=== PATIENT | female | born 1995 | race African-American/Black ===

== ENCOUNTER 2016-08-26 21:31 | Emergency (ER) | payer SELFPAY ==
[~2016-08-26 21:31] MED LIST: AMOX875T PO; CEPH500C3 PO
[2016-08-26 21:33] VITALS: BP 138/74; PULSE 91; RESP 18; TEMP 99.5; O2SAT 99
--- NOTE | 2016-08-26 21:52 | PD ---
HPI Chief Complaint: Cold / Flu Symptoms Time Seen by Provider: 21:51 Travel History International Travel<30 days: No Contact w/Intl Traveler<30days: No Traveled to known affect area: No History of Present Illness HPI 21-year-old black female presents to emergency Department with complaints of myalgias, arthralgias, sore throat, congestion, slight cough. She has taken [id number] cough medicine without relief. She has not taken any Tylenol or ibuprofen today. She denies any nausea vomiting. No abdominal pain or diarrhea. No dysuria or frequency. Her significant other states that she just got into town yesterday from [place]. No travel outside the country. PFSH Past Medical History Medical History: Denies Significant Hx Tetanus Vaccination: < 5 Years ?: Not LMP: last week Past Surgical History Surgical History: No Previous Surgery Social History Alcohol Use: No Tobacco Use: No Allergies-Medications (Allergen,Severity, Reaction): Coded Allergies: No Known Allergies (Unverified , 08/26/16) Reported Meds & Prescriptions Reported Meds & Active Scripts Active No Active Prescriptions or Reported Medications Review of Systems Except as stated in HPI: all other systems reviewed are Neg Physical Exam Narrative GENERAL: Well-developed, well-nourished in no acute distress. Nontoxic appearing. HEAD: Normocephalic, atraumatic. EYES: Pupils equal round and reactive. Extraocular motions intact. No scleral icterus. No injection or drainage. ENT: TMs clear without erythema. The external auditory canals clear. Nose: clear . Posterior pharynx is pink and moist. No tonsillar edema or exudate. Uvula midline. Airway patent. NECK: Trachea midline.Supple, nontender, moves head freely. No central bony tenderness or spasm. CARDIOVASCULAR: Regular rate and rhythm without murmurs, gallops, or rubs. RESPIRATORY: Clear to auscultation. Breath sounds equal bilaterally. No wheezes , rales, or rhonchi. GASTROINTESTINAL: Abdomen soft, non-tender, nondistended. No hepato-splenomegaly , or palpable masses. No guarding. EXTREMITIES: No clubbing, cyanosis, or edema. No joint tenderness, effusion, or edema noted. BACK: Nontender without deformity or crepitance. No flank tenderness. Data Data Last Documented VS Vital Signs Date Time Temp Pulse Resp B/P Pulse Ox O2 Delivery O2 Flow Rate FiO2 08/26/16 21:33 99.5 91 18 138/74 99 Room Air Orders Group A Rapid Strep Screen (08/26/16 21:50) Ibuprofen (Motrin) (08/26/16 22:00) Strep Culture (Group A) (08/26/16 22:00) MDM Medical Decision Making Medical Screen Exam Complete: Yes Emergency Medical Condition: Yes Medical Record Reviewed: Yes Interpretation(s) Rapid strep: Negative Differential Diagnosis MDM: High Differential diagnoses: Pneumonia, bronchitis, URI, asthma, RAD, strep throat, viral syndrome Narrative Course Patient is given Motrin 600 mg by mouth and a rapid strep that is been ordered. Patient's rapid strep is negative. This is acute viral syndrome Diagnosis Primary Impression: Acute viral syndrome Patient Instructions: General Instructions Departure Forms: School Release, Please excuse from school until (free text option): No work or school 3 days. Tests/Procedures, Work Release Additional Instructions: Rest. Increase fluids. Tylenol and Advil for fever or pain. Recheck with her primary care doctor in the next 3-5 days. Return to the ER if any problems develop. Med/Other Pt SpecificInfo: No Meds Exist/No RX given Scripts No Active Prescriptions or Reported Meds Disposition: 01 DISCHARGE HOME Condition: Stable Tye Izaguirre August 26, 2016 21:52
[2016-08-26] MEDS ORDERED: IBUPROFEN 600 MG TAB PO ONE (22:00)
== END 2016-08-26 23:15 | disposition home or self-care (01) ==
LOC: NEPK 21:31
DX: B34.9 Viral infection, unspecified (principal)
CPT/HCPCS: 87081; 87880; 99283

== ENCOUNTER 2017-04-25 08:08 | Emergency (ER) | payer OTHER ==
[~2017-04-25 08:08] MED LIST changes: -AMOX875T PO; -CEPH500C3 PO; +PREN1PAK2 PO
--- NOTE | 2017-04-25 09:08 | PD ---
HPI Chief Complaint Vaginal bleeding Date Seen: Apr 25, 2017 Time Seen: 09:03 Travel History International Travel<30 Days: No Contact w/Intl Traveler<30Days: No Known Affected Area: No History of Present Illness HPI 21-year-old at 16 weeks 3 days comes in complaining of vaginal bleeding. Patient was diagnosed with twin gestation and has had previous episodes of bleeding 3. While she was in [place] yesterday patient passed a blood clot the size a [place], no cramping or abdominal pain was noted. Patient continued to have some brown discharge through the day that progressed to today she came in today because she she arrived back in the area. Patient seeks [facility] with her last ultrasound 2 weeks ago showed no abnormalities. Weeks Gestation: 16 Para: 0 : 1 History Past Medical History Medical History: Denies Significant Hx Past Surgical History Surgical History: No Previous Surgery Family History Family History: Negative Social History Alcohol Use: No Tobacco Use: No Substance Abuse: No Allergies-Medications (Allergen,Severity, Reaction): Coded Allergies: No Known Allergies (Unverified Adverse Reaction, Unknown, 04/15/17) Home Meds Active Scripts W/O Vit A W/ Fe Carbo Pack (Citranatal Dha Pack) 27-1 & 250 Mg Pack, 1 EA PO DAILY for Nutritional Supplement, #30 BLISTER 11 Refills 30 day supply. Prov:Marcela Golden 04/02/17 Review of Systems Except as stated in HPI: all other systems reviewed are Neg Physical Exam Narrative GENERAL: Well-nourished, well-developed patient. SKIN: Warm and dry. HEAD: Normocephalic and atraumatic. EYES: No scleral icterus. No injection or drainage. ENT: No nasal drainage noted. Mucous membranes pink. Airway patent. NECK: Supple, trachea midline. No JVD. CARDIOVASCULAR: Regular rate and rhythm without murmurs, gallops, or rubs. RESPIRATORY: Breath sounds equal bilaterally. No accessory muscle use. ABDOMEN/GI: Abdomen soft, non-tender, bowel sounds present, no rebound, no guarding Gravid to [16 normal-] weeks size Fundal Height: [-] GENITOURINARY: Speculum examination was performed that showed some brown discharge intravaginally, no active bleeding, cervix is closed. External Genitalia: intact and normal in appearance BUS glands: [-] Cervix: [-] Dilatation: [-] Effacement: [-] Station: [-] Presentation: [-] Membranes: [intact or ruptured] Uterine Contractions: [-] Bedside ultrasound was performed that confirms twin gestation approximate 16 weeks. Some blood is noted above the internal cervical os, cervix appears long no funneling is noted no dilation is noted. Both fetuses have a heart rate in the 140s. EXTREMITIES: No cyanosis or edema. BACK: Nontender without obvious deformity. No CVA tenderness. NEUROLOGICAL: Awake and alert. Motor and sensory grossly within normal limits. Five out of 5 muscle strength in all muscle groups. Normal speech. Data Data Vital Signs Reviewed: Yes MDM Medical Record Reviewed: Yes Plan 21-year-old female at 16 weeks 3 days with twin gestation, first and second trimester bleeding. Patient continues to be at risk for continued bleeding as well as labor given her history of first and second trimester bleeding. She has a ultrasound again in 2 weeks with [facility] and I put her at limited activity and pelvic rest. No signs of cervical insufficiency is noted although I cannot rule out a low- lying posterior placenta Diagnosis Diagnosis: Primary Impression: Vaginal bleeding during , antepartum Additional Impressions: 16 weeks gestation of Twin gestation in second trimester Disposition: 01 DISCHARGE HOME Dannielle Macias MD Apr 25, 2017 09:07
== END 2017-04-25 09:28 | disposition home or self-care (01) ==
LOC: HOBED 08:08
DX: O20.9 Hemorrhage in early pregnancy, unspecified (principal); O30.002 Twin pregnancy, unspecified number of placenta and unspecified number of amniotic sacs, second trimester; Z3A.16 16 weeks gestation of pregnancy
CPT/HCPCS: 99283

== ENCOUNTER → 2017-05-05 | Outpatient (CLI) | payer OTHER | LOC: HPND 09:08 | PROVIDERS: ATTEND Obstetrics & Gynecology | DX: O30.042 Twin pregnancy, dichorionic/diamniotic, second trimester (principal) | CPT/HCPCS: 76810; 76811; 76812; 76817 ==

== ENCOUNTER → 2017-05-12 | Outpatient (CLI) | payer OTHER ==
[~2017-05-12] MED LIST changes: +NITR100C4 PO
== END ==
LOC: HPND 09:21
PROVIDERS: ATTEND Obstetrics & Gynecology
DX: O26.872 Cervical shortening, second trimester (principal); O30.042 Twin pregnancy, dichorionic/diamniotic, second trimester
CPT/HCPCS: 76815; 76817

== ENCOUNTER 2017-05-18 11:17 | Emergency (ER) | payer OTHER ==
[~2017-05-18 11:17] MED LIST changes: -NITR100C4 PO
--- NOTE | 2017-05-18 12:01 | PD ---
HPI Chief Complaint Abdominal pain Travel History International Travel<30 Days: No Contact w/Intl Traveler<30Days: No Known Affected Area: No History of Present Illness HPI 21-year-old , IUP at 19.5 care couple could by twin IUP, shortened cervix, anemia, first trimester bleeding Patient presents reporting a 3 day history of lower abdominal pain it's worse when she uses the bathroom, but she denies any dysuria or actual pain in her bladder. Of note she's been told to be on bedrest for shortened cervix or reports that she's been going back and forth in doing things and campus as well as as other activities. She reports that 2 weeks ago her cervical length was 2.5 cm in 1 week ago it was 2.9 cm. She denies any painful contractions or cramping. She denies any leaking of fluid or vaginal bleeding. She reports normal movement Of note review of the records indicated that on 05.05.17 her cervical length was 2.5-2.7 cm. On 05/12/17 her cervical length was 3.2 and 2.9 cm with fundal pressure, no funneling was noted. Weeks Gestation: 19 Para: 0 : 1 Miscarriage: 0 : 0 History Past Medical History Narrative Medical Anemia Obstetric History Obstetric History Past Surgical History Surgical History: No Previous Surgery Family History Narrative Family History DM Social History Alcohol Use: No Tobacco Use: No Substance Abuse: No Allergies-Medications (Allergen,Severity, Reaction): Coded Allergies: No Known Allergies (Unverified Adverse Reaction, Unknown, 04/15/17) Home Meds Active Scripts Nitrofurantoin Monohydrate Macrocrystals (Nitrofurantoin Monohydrate Macrocrystals) 100 Mg Cap, 100 MG PO BID for Infection, #14 CAP 0 Refills . Prov:Norm Rodriguez MD R2 05/18/17 W/O Vit A W/ Fe Carbo Pack (Citranatal Dha Pack) 27-1 & 250 Mg Pack, 1 EA PO DAILY for Nutritional Supplement, #30 BLISTER 11 Refills 30 day supply. Prov:Marcela Golden 04/02/17 Review of Systems Except as stated in HPI: all other systems reviewed are Neg General / Constitutional: No: Fever, Weight Loss, Chills, Other Gastrointestinal: No: Nausea, Vomiting, Diarrhea, Abdominal Pain, Hematemesis, Hematochezia, Constipation, Changes in Bowel Habits, Indigestion, Loss of Appetite, Other Genitourinary: No: Urgency, Frequency, Dysuria, Nocturia, Hematuria, Decreased Urinary Output, Oliguria, Hesitancy, Dribbling, Incontinence, Pelvic Pain, Dyspareunia, Discharge, Vaginal Bleeding, Other Physical Exam Narrative GENERAL: Well-nourished, well-developed patient. SKIN: Warm and dry. HEAD: Normocephalic and atraumatic. EYES: No scleral icterus. No injection or drainage. ENT: No nasal drainage noted. Mucous membranes pink. Airway patent. NECK: Supple, trachea midline. No JVD. CARDIOVASCULAR: Regular rate and rhythm without murmurs, gallops, or rubs. RESPIRATORY: Breath sounds equal bilaterally. No accessory muscle use. BREASTS:Deferred ABDOMEN/GI: Abdomen soft, non-tender, bowel sounds present, no rebound, no guarding Gravid GENITOURINARY: External Genitalia: intact and normal in appearance. Grossly normal BUS, no cervical or vaginal masses, grossly normal rugae. SSE reveals closed cervix and physiological discharge. SVE closed/thick/high. Uterine Contractions: occasional irritability FHT's: 150s/160s EXTREMITIES: No cyanosis or edema. BACK: Nontender without obvious deformity. No CVA tenderness. NEUROLOGICAL: Awake and alert. Motor and sensory grossly within normal limits. Normal speech. Musculoskeletal: grossly normal range of motion, gait, muscle strength Psychiatric: grossly normal memory, affect MDM Plan Assessment/plan: 1. IUP at 19.5 2. Di/di twin gestation 3. History of anemia 4. Shortened cervix: The patient had a repeat transvaginal cervical length today that was 4.1 cm. An addition the cervix appeared visually closed and is closed by SVE. Patient to continue modified bed rest until she is cleared by her primary OB. Strict AB/ labor precautions. 5. UTI: Patient appears to have a urinary tract infection, she was given Rocephin 1 g IV prior to discharge. Macrobid 100 mg by mouth twice a day 7 days was transmitted to her pharmacy. In addition she was given a written prescription in case there was an error and transmission. Patient was given strict pyelonephritis precautions. There is no evidence of pyelonephritis at this time. F/U on culture results with primary Ob in 2 days. 6. heart tones appropriate for gestational age 7. F/U with primary Ob in 2 days or sooner if needed Diagnosis Diagnosis: Primary Impression: 19 weeks gestation of Additional Impressions: Twin gestation in second trimester UTI (urinary tract infection) Disposition: 01 DISCHARGE HOME Scripts Nitrofurantoin Monohydrate Macrocrystals (Nitrofurantoin Monohydrate Macrocrystals) 100 Mg Cap 100 MG PO BID for Infection, #14 CAP 0 Refills . Prov: Norm Rodriguez MD R2 05/18/17 Additional Instructions: F/U with primary OB in 2d or sooner if needed. Rx macrobid. F/U with primary Ob in 2d for results of urine culture. Continue modified bedrest until cleared by primary Ob. Marcela Cohen MD May 18, 2017 12:01
[2017-05-18] MEDS ORDERED: LACTATED RINGER'S 1000 ML INJ 1,000 ML IV SCH (12:26)
[2017-05-18 14:20] LABS: BACTERIA, URINE FEW /hpf; BILIRUBIN, URINE NEG (NEG); BLOOD, URINE NEG (NEG); GLUCOSE,URINE NEG (NEG); KETONE, URINE NEG (NEG); MUCUS URINE FEW /lpf (OCC); NITRITE,URINE NEG (NEG); SQUAMOUS EPITHELIAL CELL URINE 6 /hpf (0-5); URINE COLOR YELLOW (YELLW/STRAW); URINE LEUKOCYTE ESTERASE LARGE (NEG)
[2017-05-18] MEDS ORDERED: NITR100C4 PO (14:34)
[2017-05-18] MEDS ORDERED: cefTRIAXone INJ 1,000 MG in SODIUM CHLORIDE 0.9% INJ 100 ML IV ONE (15:00)
== END 2017-05-18 16:10 | disposition home or self-care (01) ==
LOC: HOBED 11:17
DX: O23.42 Unspecified infection of urinary tract in pregnancy, second trimester (principal); O30.002 Twin pregnancy, unspecified number of placenta and unspecified number of amniotic sacs, second trimester; Z3A.19 19 weeks gestation of pregnancy
CPT/HCPCS: 76815; 76817; 80307; 81001; 87086; 96361; 96374; 99284; G0481; J0696; J7120

== ENCOUNTER → 2017-06-02 | Outpatient (CLI) | payer OTHER ==
[~2017-06-02] MED LIST changes: +NITR100C4 PO
== END ==
LOC: HPND 09:22
PROVIDERS: ATTEND Obstetrics & Gynecology
DX: O30.042 Twin pregnancy, dichorionic/diamniotic, second trimester (principal); O26.872 Cervical shortening, second trimester
CPT/HCPCS: 76816; 76817

== ENCOUNTER 2017-06-17 07:54 | Observation (INO) | payer OTHER ==
[2017-06-17] VITALS (98 sets, daily range): BP systolic 107–135; BP diastolic 53–80; PULSE 73–101; RESP 16–18; TEMP 97.6–98.1
[~2017-06-17] VITALS: Ht 160 cm; Wt 61.0 kg
[2017-06-17] MEDS ORDERED: SODIUM CHLORIDE 0.9% FLUSH 10 ML FLUSH IV FLUSH PRN (10:30)
--- NOTE | 2017-06-17 10:44 | HHI.HP ---
HPI Chief Complaint shortened cervix Date Seen: Jun 17, 2017 Time Seen: 10:00 (Migdalia Grove MD R1) Travel History International Travel<30 Days: No Contact w/Intl Traveler<30Days: No Known Affected Area: No (Migdalia Grove MD R1) History of Present Illness HPI Ms. Ignacio is a 22-year-old -[place] female at 24/0 weeks twin gestation presenting to the OB floor after being sent over from [facility] for shortened cervical length. Her cervical length today was 17 mm from 35 mm 2 weeks ago. Patient states that she has contractions, but was unsure of if they were true contractions due to them being uncomfortable and not painful. She states that she is felt these over the past 2-3 days. She states that she feels a lot of contractions over an hour, but has not timed them. No vaginal bleeding, no LOF, she has felt the babies move. No dysuria, no CP, no shortness of breath, no bilateral calf pain Weeks Gestation: 24 Para: 0 : 1 (Migdalia Grove MD R1) History Past Medical History Medical History: Denies Significant Hx (Migdalia Grove MD R1) Past Surgical History Surgical History: No Previous Surgery (Migdalia Grove MD R1) Family History Narrative Family History Mother-asthma Father- DM (Migdalia Grove MD R1) Social History Narrative Social History lives with giselle' Goes to [employer] for degree in Criminal Justice Denies alcohol, tobacco, or illicit drug use Alcohol Use: No Tobacco Use: No Substance Abuse: No (Migdalia Grove MD R1) Allergies-Medications (Allergen,Severity, Reaction): Coded Allergies: No Known Allergies (Unverified Adverse Reaction, Unknown, 04/15/17) Home Meds Active Scripts Nitrofurantoin Monohydrate Macrocrystals (Nitrofurantoin Monohydrate Macrocrystals) 100 Mg Cap, 100 MG PO BID for Infection, #14 CAP 0 Refills . Prov:Norm Rodriguez MD R2 05/18/17 W/O Vit A W/ Fe Carbo Pack (Citranatal Dha Pack) 27-1 & 250 Mg Pack, 1 EA PO DAILY for Nutritional Supplement, #30 BLISTER 11 Refills 30 day supply. Prov:Marcela Golden 04/02/17 Review of Systems General / Constitutional: No: Fever, Chills Eyes: No: Blurred Vision HENT: No: Headaches Cardiovascular: No: Chest Pain or Discomfort Respiratory: No: Short of Breath Gastrointestinal: No: Nausea, Vomiting Genitourinary: No: Dysuria Musculoskeletal: No: Weakness Skin: No Rash (Migdalia Grove MD R1) Physical Exam Narrative GENERAL: Well-nourished, well-developed patient. SKIN: Warm and dry. HEAD: Normocephalic and atraumatic. EYES: No scleral icterus. No injection or drainage. ENT: No nasal drainage noted. Mucous membranes pink. Airway patent. NECK: Supple, trachea midline. No JVD. CARDIOVASCULAR: Regular rate and rhythm without murmurs, gallops, or rubs. RESPIRATORY: Breath sounds equal bilaterally. No accessory muscle use. BREASTS: Bilateral exam showed no masses , no retractions, no nipple discharge. ABDOMEN/GI: Abdomen soft, non-tender, bowel sounds present, no rebound, no guarding Gravid to 24 weeks size GENITOURINARY: External Genitalia: intact and normal in appearance Cervix: posterior Dilatation: 0 Effacement: 0 Station: high Membranes: intact Uterine Contractions: q2-6min FHT's: Category: 1 Baseline: 140s Reactive: yes Variability: moderate Decels: none EXTREMITIES: No cyanosis or edema. BACK: Nontender without obvious deformity. No CVA tenderness. NEUROLOGICAL: Awake and alert. Motor and sensory grossly within normal limits. Five out of 5 muscle strength in all muscle groups. Normal speech. (Migdalia Grove MD R1) Caprini VTE Risk Assessment Caprini VTE Risk Assessment: No/Low Risk (score <= 1) Caprini Risk Assessment Model Point Value = 1 Point Value = 2 Point Value = 3 Point Value = 5 Age 41-60 Minor surgery BMI > 25 kg/m2 Swollen legs Varicose veins or History of unexplained or recurrent spontaneous Oral contraceptives or hormone replacement Sepsis (< 1 month) Serious lung disease, including pneumonia (< 1 month) Abnormal pulmonary function Acute myocardial infarction Congestive heart failure (< 1 month) History of inflammatory bowel disease Medical patient at bed rest Age 61-74 Arthroscopic surgery Major open surgery (> 45 min) Laparoscopic surgery (> 45 min) Malignancy Confined to bed (> 72 hours) Immobilizing plaster cast Central venous access Age >= 75 History of VTE Family history of VTE Factor V Leiden Prothrombin [id number] Lupus anticoagulant Anticardiolipin antibodies Elevated serum homocysteine Heparin-induced thrombocytopenia Other congenital or acquired thrombophilia Stroke (< 1 month) Elective arthroplasty Hip, pelvis, or leg fracture Acute spinal cord injury (< 1 month) Prophylaxis Regimen Total Risk Factor Score Risk Level Prophylaxis Regimen 0-1 Low Early ambulation 2 Moderate Order ONE of the following: *Sequential Compression Device (SCD) *Heparin 5000 units SQ BID 3-4 Higher Order ONE of the following medications: *Heparin 5000 units SQ TID *Enoxaparin/Lovenox 40 mg SQ daily (WT < 150 kg, CrCl > 30 mL/min) *Enoxaparin/Lovenox 30 mg SQ daily (WT < 150 kg, CrCl > 10-29 mL/min) *Enoxaparin/Lovenox 30 mg SQ BID (WT < 150 kg, CrCl > 30 mL/min) AND/OR *Sequential Compression Device (SCD) 5 or more Highest Order ONE of the following medications: *Heparin 5000 units SQ TID (Preferred with Epidurals) *Enoxaparin/Lovenox 40 mg SQ daily (WT < 150 kg, CrCl > 30 mL/min) *Enoxaparin/Lovenox 30 mg SQ daily (WT < 150 kg, CrCl > 10-29 mL/min) *Enoxaparin/Lovenox 30 mg SQ BID (WT < 150 kg, CrCl > 30 mL/min) AND *Sequential Compression Device (SCD) (Migdalia Grove MD R1) Data Data Vital Signs Reviewed: Yes Orders Orders Us Ob Limited W/Transvaginal (06/17/17 ) Ob (2e) Additional Admit Info (06/17/17 09:35) (Migdalia Grove MD R1) Assessment/Plan Problem List: (1) Antepartum cervical shortening ICD Codes: O26.879 - Cervical shortening, unspecified trimester Status: Acute Plan: 22yo at 24/0 weeks twin gestation presenting for shortened cervical length. Her cervix measured 17mm this morning at [facility], which has decreased from 35mm 2 weeks ago. Admit to observation FHT shows category 1, contractions varying from q2-6min Cervix is closed - FFN pending - Order CBC, CMP, UA - Start Magnesium Sulfate - Betamethasone IM x2 q24h (2) FEN Status: Acute Plan: Fluids: LR @ 125 mls/hr Electrolytes: monitor and replete as needed Nutrition: Regular basic diet DVT Prophylaxis: Early ambulation.bilateral SCDs Pain: Tylenol 650 mg PRN (Migdalia Grove MD R1) Collaborating MD Comments 24 weeks di/di twin gestation with threatened PTL, shortened cervix, and irregular uterine contractions. Plan course of betamethasone, magnesium sulfate , and observations. FFN is negative but patient is at high risk for delivery due to acute cervical shortening and contractions. (Dannielle Macias MD) Migdalia Grove MD R1 Jun 17, 2017 10:44 Dannielle Macias MD Jun 18, 2017 08:25
[2017-06-17] MEDS ORDERED: MAGNESIUM SULFATE 4 GM PREMIX 100 ML IV ONE (11:00)
[2017-06-17] MEDS ORDERED: ACETAMINOPHEN 325 MG TAB PO PRN (11:15)
[2017-06-17] MEDS ORDERED: ONDANSETRON HCL 4 MG/2 ML VIAL IV PUSH PRN (11:15)
[2017-06-17] MEDS ORDERED: CALCIUM GLUCONATE 10% 1 GM/10 ML VIAL IV PUSH PRN (11:15)
[2017-06-17] MEDS: LACTATED RINGER'S 1000 ML INJ 1,000 ML IV SCH ×2 (11:28→19:15)
[2017-06-17] MEDS: MAGNESIUM SULFATE 40 GM PREMIX 1,000 ML IV SCH (11:29)
[2017-06-17] MEDS: BETAMETHASONE SOD PHOS/ACETATE SUSP 30 MG/5 ML VIAL IM SCH (11:30)
[2017-06-17 11:43] LABS: AUTOMATED NEUTROPHIL # 5.8 TH/MM3 (1.8-7.7); BASOPHIL % 0.3 % (0.0-2.0); EOSINOPHIL # 0.1 TH/MM3 (0-0.4); EOSINOPHIL % 0.8 % (0.0-4.0); HEMATOCRIT 30.3 % (35.0-46.0); HEMOGLOBIN 10.1 GM/DL (11.6-15.3); LYMPH % 17.1 % (9.0-44.0); LYMPHOCYTE # 1.4 TH/MM3 (1.0-4.8); MEAN CELL VOLUME 86.2 FL (80.0-100.0); MEAN CORPUSCULAR HEMOGLOBIN 28.9 PG (27.0-34.0); MEAN CORPUSCULAR HGB CONC 33.5 % (32.0-36.0); MEAN PLATELET VOLUME 9.6 FL (7.0-11.0); MONO % 9.6 % (0.0-8.0); MONOCYTE # 0.8 TH/MM3 (0-0.9); NEUT % 72.2 % (16.0-70.0); PLATELET COUNT 239 TH/MM3 (150-450); RED BLOOD COUNT 3.51 MIL/MM3 (4.00-5.30); RED CELL DISTRIBUTION WIDTH 12.3 % (11.6-17.2)
[2017-06-17 12:00] LABS: BILIRUBIN, URINE NEG (NEG); BLOOD, URINE NEG (NEG); GLUCOSE,URINE NEG (NEG); KETONE, URINE NEG (NEG); MUCUS URINE FEW /lpf (OCC); NITRITE,URINE NEG (NEG); SQUAMOUS EPITHELIAL CELL URINE 2 /hpf (0-5); URINE COLOR YELLOW (YELLW/STRAW); URINE LEUKOCYTE ESTERASE MOD (NEG)
[2017-06-17 12:10] LABS: ALBUMIN 2.6 GM/DL (3.4-5.0); AST (GOT) 17 U/L (15-37); BICARBONATE 23.7 MEQ/L (21.0-32.0); BLOOD UREA NITROGEN 9 MG/DL (7-18); CALCIUM 8.6 MG/DL (8.5-10.1); CHLORIDE 104 MEQ/L (98-107); CREATININE 0.62 MG/DL (0.50-1.00); GLOMERULAR FILTRATION RATE 146 ML/MIN (>89); GLUCOSE,RANDOM 80 MG/DL (74-106); SODIUM (NA) 137 MEQ/L (136-145)
[2017-06-17 12:11] LABS: ALT (GPT) 23 U/L (10-53)
[2017-06-17 12:14] LABS: ALKALINE PHOSPHATASE 89 U/L (45-117); TOTAL BILIRUBIN ADULT 0.2 MG/DL (0.2-1.0); TOTAL PROTEIN 6.3 GM/DL (6.4-8.2)
[2017-06-17] MEDS ORDERED: SODIUM CHLORIDE 0.9% FLUSH 10 ML FLUSH IV FLUSH SCH (21:00)
[2017-06-18] VITALS (15 sets, daily range): BP systolic 106–123; BP diastolic 52–76; PULSE 79–109; RESP 16–18; TEMP 97.6–98
[2017-06-18] MEDS: MAGNESIUM SULFATE 40 GM PREMIX 1,000 ML IV SCH (07:40)
--- NOTE | 2017-06-18 09:50 | PD.OB.ANTE ---
Subjective Diagnosis: (1) Antepartum cervical shortening Diagnosis: Principal (2) FEN Interval History Patient seen and examined this morning. She states that she is doing well and has no complaints. She had a few contractions last night but none since then. She is eating and drinking well. Antepartum ROS: Reports: movement normal, Denies: New complaints, Loss of fluid, Vaginal bleeding, Contractions Objective Vital Signs Vital Signs Date Time Temp Pulse Resp B/P (MAP) Pulse Ox O2 Delivery O2 Flow Rate FiO2 06/18/17 07:00 87 122/68 (86) 06/18/17 07:00 97.6 16 06/18/17 06:00 84 116/60 (78) 06/18/17 05:00 79 118/68 (85) 06/18/17 04:00 83 115/63 (80) 06/18/17 03:00 81 106/52 (70) 06/18/17 02:00 79 123/66 (85) 06/18/17 01:00 98.0 81 112/64 (80) 06/18/17 00:08 18 06/18/17 00:00 88 120/76 (91) 06/17/17 23:00 82 107/53 (71) 06/17/17 22:04 89 113/67 (82) 06/17/17 19:15 97.6 06/17/17 18:50 95 06/17/17 18:49 18 06/17/17 18:45 93 06/17/17 18:40 101 06/17/17 18:35 94 06/17/17 18:30 90 06/17/17 18:25 89 06/17/17 18:20 88 06/17/17 18:15 92 06/17/17 18:10 91 06/17/17 18:05 96 06/17/17 18:00 88 06/17/17 18:00 90 121/69 (86) 06/17/17 17:55 92 06/17/17 17:50 89 06/17/17 17:48 16 06/17/17 17:45 90 06/17/17 17:40 86 06/17/17 17:35 89 06/17/17 17:30 87 06/17/17 17:25 89 06/17/17 17:20 84 06/17/17 17:15 93 06/17/17 17:10 89 06/17/17 17:05 85 06/17/17 17:00 86 117/71 (86) 06/17/17 17:00 85 06/17/17 16:59 16 06/17/17 16:55 95 06/17/17 16:50 94 06/17/17 16:45 86 06/17/17 16:40 88 06/17/17 16:35 87 06/17/17 16:30 90 06/17/17 16:25 88 06/17/17 16:20 89 06/17/17 16:15 84 06/17/17 16:10 82 06/17/17 16:05 89 06/17/17 16:00 84 118/71 (87) 06/17/17 16:00 92 06/17/17 15:59 18 06/17/17 15:55 82 06/17/17 15:50 88 06/17/17 15:45 83 06/17/17 15:40 87 06/17/17 15:35 86 06/17/17 15:30 86 06/17/17 15:25 80 06/17/17 15:20 88 06/17/17 15:15 85 06/17/17 15:10 85 06/17/17 15:05 81 06/17/17 15:00 84 119/65 (83) 06/17/17 15:00 79 06/17/17 14:57 98.1 16 06/17/17 14:55 83 06/17/17 14:50 84 06/17/17 14:45 80 06/17/17 14:40 81 06/17/17 14:35 81 06/17/17 14:30 77 06/17/17 14:30 80 128/64 (85) 06/17/17 14:25 81 06/17/17 14:20 81 06/17/17 14:15 84 06/17/17 14:10 89 06/17/17 14:05 88 06/17/17 14:00 79 06/17/17 14:00 84 18 120/64 (82) 06/17/17 13:55 85 06/17/17 13:50 90 06/17/17 13:45 91 06/17/17 13:40 96 06/17/17 13:35 94 06/17/17 13:30 84 06/17/17 13:30 88 119/64 (82) 06/17/17 13:25 94 06/17/17 13:20 88 06/17/17 13:15 84 124/66 (85) 06/17/17 13:10 100 06/17/17 13:05 96 06/17/17 13:00 93 135/80 (98) 06/17/17 13:00 89 06/17/17 12:55 93 06/17/17 12:50 84 06/17/17 12:48 18 06/17/17 12:45 122/67 (85) 06/17/17 12:45 88 06/17/17 12:45 91 06/17/17 12:40 87 06/17/17 12:35 83 06/17/17 12:30 87 06/17/17 12:30 92 06/17/17 12:30 122/74 (90) 06/17/17 12:25 84 06/17/17 12:20 78 06/17/17 12:15 80 116/73 (87) 06/17/17 12:15 83 06/17/17 12:10 79 06/17/17 12:05 84 06/17/17 12:00 80 06/17/17 12:00 85 117/65 (82) 06/17/17 11:55 84 06/17/17 11:55 83 117/71 (86) 06/17/17 11:50 87 115/71 (86) 06/17/17 11:50 92 06/17/17 11:45 88 122/77 (92) 06/17/17 11:45 87 06/17/17 11:40 83 06/17/17 11:40 79 120/72 (88) 06/17/17 11:35 86 06/17/17 11:35 81 120/70 (87) 06/17/17 11:32 73 111/67 (82) Lab & Micro Results Test 06/17/17 10:00 06/17/17 10:46 06/17/17 11:23 Urine Color YELLOW Urine Turbidity CLEAR Urine pH 6.0 Urine Specific [place] 1.017 Urine Protein NEG mg/dL Urine Glucose (UA) NEG mg/dL Urine Ketones NEG mg/dL Urine Occult Blood NEG Urine Nitrite NEG Urine Bilirubin NEG Urine Urobilinogen LESS THAN 2.0 MG/DL Urine Leukocyte Esterase MOD Urine RBC LESS THAN 1 /hpf Urine WBC 1 /hpf Urine Squamous Epithelial Cells 2 /hpf Urine Mucus FEW /lpf Microscopic Urinalysis Comment CULT NOT INDICATED Fibronectin NEGATIVE White Blood Count 8.0 TH/MM3 Red Blood Count 3.51 MIL/MM3 Hemoglobin 10.1 GM/DL Hematocrit 30.3 % Mean Corpuscular Volume 86.2 FL Mean Corpuscular Hemoglobin 28.9 PG Mean Corpuscular Hemoglobin Concent 33.5 % Red Cell Distribution Width 12.3 % Platelet Count 239 TH/MM3 Mean Platelet Volume 9.6 FL Neutrophils (%) (Auto) 72.2 % Lymphocytes (%) (Auto) 17.1 % Monocytes (%) (Auto) 9.6 % Eosinophils (%) (Auto) 0.8 % Basophils (%) (Auto) 0.3 % Neutrophils # (Auto) 5.8 TH/MM3 Lymphocytes # (Auto) 1.4 TH/MM3 Monocytes # (Auto) 0.8 TH/MM3 Eosinophils # (Auto) 0.1 TH/MM3 Basophils # (Auto) 0.0 TH/MM3 CBC Comment DIFF FINAL Differential Comment Blood Urea Nitrogen 9 MG/DL Creatinine 0.62 MG/DL Random Glucose 80 MG/DL Total Protein 6.3 GM/DL Albumin 2.6 GM/DL Calcium Level 8.6 MG/DL Alkaline Phosphatase 89 U/L Aspartate Amino Transf (AST/SGOT) 17 U/L Alanine Aminotransferase (ALT/SGPT) 23 U/L Total Bilirubin 0.2 MG/DL Sodium Level 137 MEQ/L Potassium Level 3.6 MEQ/L Chloride Level 104 MEQ/L Carbon Dioxide Level 23.7 MEQ/L Anion Gap 9 MEQ/L Estimat Glomerular Filtration Rate 146 ML/MIN Physical Exam GENERAL: Well-nourished, well-developed patient. CARDIOVASCULAR: Regular rate and rhythm without murmurs, gallops, or rubs. RESPIRATORY: Breath sounds equal bilaterally. No accessory muscle use. ABDOMEN/GI: Abdomen soft, non-tender. Gravid to 24 weeks FHT's: Category: 1 Baseline: Twin A 120s, Twin B 130s Reactive: yes Variability: moderate Decels: none EXTREMITIES: No cyanosis or edema, non-tender, without signs of DVT. Assessment and Plan Problem List: (1) Antepartum cervical shortening ICD Codes: O26.879 - Cervical shortening, unspecified trimester Status: Acute Plan: 22yo at 24/1 weeks twin gestation presenting for shortened cervical length. Her cervix measured 17mm this morning at OB diagnostics, which has decreased from 35mm 2 weeks ago. Admit to observation FHT shows category 1, no contractions seen on FHT this morning Cervix is closed - FFN negative - D/C Magnesium Sulfate - 2nd Betamethasone IM today D/C after 2nd betamethasone injection, on bed and pelvic rest (2) FEN Status: Acute Plan: Fluids: LR @ 125 mls/hr Electrolytes: monitor and replete as needed Nutrition: Regular basic diet DVT Prophylaxis: Early ambulation.bilateral SCDs Pain: Tylenol 650 mg PRN Migdalia Grove MD R1 Jun 18, 2017 09:50
[2017-06-18] MEDS: BETAMETHASONE SOD PHOS/ACETATE SUSP 30 MG/5 ML VIAL IM SCH (11:06)
--- NOTE | 2017-06-18 13:54 | HHI.DCPOC ---
Discharge Care Plan Diagnosis: (1) Threatened labor (2) Antepartum cervical shortening Report Symptoms to Your Doctor -Temperature above 100.5 degrees -Redness, of incision or excessive or foul smelling drainage -Unusual pain or calf pain -Increased vaginal bleeding -Painful or difficulty urinating -Feelings of extreme sadness or anxiety after 2 weeks Goals to Promote Your Health * To prevent worsening of your condition and complications * To maintain your health at the optimal level Directions to Meet Your Goals Bed and pelvic rest for the remainder of the Take your medications as prescribed Follow your dietary instruction Follow activity as directed Ensure plenty of rest for recovery Drink fluids for hydration Keep your appointments as scheduled Take your immunizations and boosters as scheduled If your symptoms worsen call your PCP, if no PCP go to Urgent Care Center or Emergency Room Smoking is Dangerous to Your Health. Avoid second hand smoke Call the 24-hour crisis hotline for domestic abuse at Migdalia Grove MD R1 Jun 18, 2017 13:54
== END 2017-06-18 15:14 | disposition home or self-care (01) ==
LOC: HPND 07:54 → H2EA 09:32
PROVIDERS: ADMIT Obstetrics & Gynecology Maternal & Fetal Medicine; ATTEND Obstetrics & Gynecology Maternal & Fetal Medicine
DX: O47.02 False labor before 37 completed weeks of gestation, second trimester (principal); O30.042 Twin pregnancy, dichorionic/diamniotic, second trimester; O26.872 Cervical shortening, second trimester; Z3A.24 24 weeks gestation of pregnancy; Z82.5 Family history of asthma and other chronic lower respiratory diseases; Z83.3 Family history of diabetes mellitus
CPT/HCPCS: 76815; 76817; 80053; 81001; 82731; 85025; 96361; 96365; 96372; G0378; J0702; J3475; J7120

== ENCOUNTER 2017-06-20 23:08 | Emergency (ER) | payer OTHER ==
[~2017-06-20 23:08] MED LIST changes: -NITR100C4 PO
[2017-06-21] MEDS ORDERED: TERBUTALINE INJ 1 MG/ML AMP SQ ONE (00:45)
[2017-06-21 00:54] LABS: BASOPHIL % 0.1 % (0.0-2.0); EOSINOPHIL # 0.1 TH/MM3 (0-0.4); EOSINOPHIL % 0.7 % (0.0-4.0); HEMATOCRIT 29.9 % (35.0-46.0); HEMOGLOBIN 9.9 GM/DL (11.6-15.3); LYMPH % 11.6 % (9.0-44.0); LYMPHOCYTE # 1.6 TH/MM3 (1.0-4.8); MEAN CELL VOLUME 86.3 FL (80.0-100.0); MEAN CORPUSCULAR HEMOGLOBIN 28.5 PG (27.0-34.0); MEAN PLATELET VOLUME 9.4 FL (7.0-11.0); MONO % 10.2 % (0.0-8.0); MONOCYTE # 1.4 TH/MM3 (0-0.9); NEUT % 77.4 % (16.0-70.0); PLATELET COUNT 279 TH/MM3 (150-450); RED BLOOD COUNT 3.46 MIL/MM3 (4.00-5.30); RED CELL DISTRIBUTION WIDTH 12.4 % (11.6-17.2); WHITE BLOOD COUNT 14.1 TH/MM3 (4.0-11.0)
[2017-06-21 01:09] LABS: BICARBONATE 24.5 MEQ/L (21.0-32.0); CALCIUM 8.3 MG/DL (8.5-10.1); CREATININE 0.55 MG/DL (0.50-1.00)
[2017-06-21 01:40] LABS: BACTERIA, URINE RARE /hpf; BILIRUBIN, URINE NEG (NEG); BLOOD, URINE NEG (NEG); GLUCOSE,URINE 300 mg/dL (NEG); KETONE, URINE NEG (NEG); MUCUS URINE FEW /lpf (OCC); NITRITE,URINE NEG (NEG); PH, URINE 6.5 (5.0-8.5); SQUAMOUS EPITHELIAL CELL URINE 2 /hpf (0-5); URINE COLOR LIGHT-YELLOW (YELLW/STRAW); URINE LEUKOCYTE ESTERASE LARGE (NEG)
[2017-06-21] MEDS ORDERED: ACETAMINOPHEN 500 MG CPLT PO ONE (01:45)
--- NOTE | 2017-06-21 01:48 | PD ---
HPI Chief Complaint sore throat and abdom/vag pain Date Seen: Jun 21, 2017 Time Seen: 01:37 Travel History International Travel<30 Days: No Contact w/Intl Traveler<30Days: No Known Affected Area: No History of Present Illness HPI pt is a 22 y/o @ 24 4/7 weeks w/ di/di twins present w/ c/o sore throat and abdom/vag pain. pt. states sore throat began this am and has worsened thruout day. no coughing, no cp/sob, no fever/chills. pt. w/ intermittent abdominal cramping and vag pain that increased in freq thru out the day. no vb/ lof, +FM x 2. pt. seen in l&d last week after being diagnosed with shortened cervix by ob dx. pt. given steroids and had a - ffn. Weeks Gestation: 24 Para: 0 : 1 History Past Medical History Medical History: Denies Significant Hx Past Surgical History Surgical History: No Previous Surgery Family History Family History: Negative Social History Alcohol Use: No Tobacco Use: No Substance Abuse: No Allergies-Medications (Allergen,Severity, Reaction): Coded Allergies: No Known Allergies (Unverified Adverse Reaction, Unknown, 04/15/17) Home Meds Active Scripts W/O Vit A W/ Fe Carbo Pack (Citranatal Dha Pack) 27-1 & 250 Mg Pack, 1 EA PO DAILY for Nutritional Supplement, #30 BLISTER 11 Refills 30 day supply. Prov:Marcela Golden EXCEL SPECIALIST 04/02/17 Discontinued Scripts Nitrofurantoin Monohydrate Macrocrystals (Nitrofurantoin Monohydrate Macrocrystals) 100 Mg Cap, 100 MG PO BID for Infection, #14 CAP 0 Refills . Prov:Norm Rodriguez MD R2 05/18/17 Review of Systems Except as stated in HPI: all other systems reviewed are Neg Physical Exam Narrative GENERAL: Well-nourished, well-developed patient. SKIN: Warm and dry. HEAD: Normocephalic and atraumatic. EYES: No scleral icterus. No injection or drainage. ENT: No nasal drainage noted. Mucous membranes pink. Airway patent. NECK: Supple, trachea midline. No JVD. CARDIOVASCULAR: Regular rate and rhythm without murmurs, gallops, or rubs. RESPIRATORY: Breath sounds equal bilaterally. No accessory muscle use. BREASTS: Bilateral exam showed no masses , no retractions, no nipple discharge. ABDOMEN/GI: Abdomen soft, diffuse tender, bowel sounds present, no rebound, no guarding Gravid Uterine Contractions: irritability FHT's: Reactive: + x 2 Variability: mod Decels: doris EXTREMITIES: No cyanosis or edema. BACK: Nontender without obvious deformity. No CVA tenderness. NEUROLOGICAL: Awake and alert. Motor and sensory grossly within normal limits. Five out of 5 muscle strength in all muscle groups. Normal speech. Data Data Vital Signs Reviewed: Yes Orders Orders Complete Blood Count With Diff (06/21/17 00:33) Basic Metabolic Panel (Bmp) (06/21/17 00:33) Group A Rapid Strep Screen (06/21/17 00:33) Terbutaline Inj (Brethine Inj) (06/21/17 00:45) Strep Culture (Group A) (06/21/17 00:36) Urinalysis - C+S If Indicated (06/21/17 01:30) Acetaminophen (Tylenol) (06/21/17 01:45) Labs Laboratory Tests Test 06/20/17 23:30 3 00:37 White Blood Count 14.1 Red Blood Count 3.46 Hemoglobin 9.9 Hematocrit 29.9 Mean Corpuscular Volume 86.3 Mean Corpuscular Hemoglobin 28.5 Mean Corpuscular Hemoglobin Concent 33.0 Red Cell Distribution Width 12.4 Platelet Count 279 Mean Platelet Volume 9.4 Neutrophils (%) (Auto) 77.4 Lymphocytes (%) (Auto) 11.6 Monocytes (%) (Auto) 10.2 Eosinophils (%) (Auto) 0.7 Basophils (%) (Auto) 0.1 Neutrophils # (Auto) 11.0 Lymphocytes # (Auto) 1.6 Monocytes # (Auto) 1.4 Eosinophils # (Auto) 0.1 Basophils # (Auto) 0.0 CBC Comment AUTO DIFF Blood Urea Nitrogen 11 Creatinine 0.55 Random Glucose 115 Calcium Level 8.3 Sodium Level 139 Potassium Level 4.0 Chloride Level 106 Carbon Dioxide Level 24.5 Anion Gap 9 Estimat Glomerular Filtration Rate 167 Date/Time Source Procedure Growth Status 06/21/17 00:36 Throat Group A Streptococcus Screen Pending Received MDM Medical Record Reviewed: Yes Plan pt. w/ di/di twins. pt. w/ sore throat, - strep and no active labor s/p terbutaline x 1. pt. w/ increased wbc and left shift. will begin amoxicillin 1 gram po qday x 10 days. pt. given precautions for return. all ? answered. f /u as sched. Disposition: 01 DISCHARGE HOME Patient Instructions: General Instructions, Labor (ED), Movement (ED), Abdominal Pain in (ED) Departure Forms: Tests/Procedures Christian Wade Jr., MD Jun 21, 2017 01:48
[2017-06-21] MEDS ORDERED: AMOXICILLIN (TRIHYDRATE) 500 MG CAP PO ONE (02:15)
--- NOTE | 2017-06-21 14:26 | PD ---
MDM Diagnosis Diagnosis: Primary Impression: 24 weeks gestation of Additional Impressions: Dichorionic diamniotic twin gestation Strep pharyngitis Disposition: 01 DISCHARGE HOME Patient Instructions: General Instructions, Labor (ED), Movement (ED), Abdominal Pain in (ED) Departure Forms: Tests/Procedures Marcela Cohen MD Jun 21, 2017 14:26
== END 2017-06-21 14:26 | disposition home or self-care (01) ==
LOC: HOBED 23:08
DX: O30.042 Twin pregnancy, dichorionic/diamniotic, second trimester (principal); J02.0 Streptococcal pharyngitis; Z3A.24 24 weeks gestation of pregnancy
CPT/HCPCS: 36415; 80048; 81001; 85025; 87081; 87880; 96372; 99283; J3105

== ENCOUNTER 2017-06-22 03:10 | Observation (INO) | payer OTHER ==
[~2017-06-22] VITALS: Ht 160 cm; Wt 62.0 kg
[2017-06-22] VITALS (126 sets, daily range): BP systolic 108–123; BP diastolic 60–75; PULSE 70–98; RESP 16–18; TEMP 97.4–98.4; O2SAT 96–100
[2017-06-22] MEDS ORDERED: SODIUM CHLORIDE 0.9% FLUSH 10 ML FLUSH IV FLUSH PRN (04:15)
[2017-06-22] MEDS ORDERED: MAGNESIUM SULFATE 4 GM PREMIX 100 ML IV ONE (04:15)
[2017-06-22] MEDS ORDERED: CALCIUM GLUCONATE 10% 1 GM/10 ML VIAL IV PUSH PRN (04:15)
--- NOTE | 2017-06-22 04:21 | PD ---
History of Present Illness History of Present Illness 22 year old with twin IUP at 24.5. Patient was admitted on 06/17/17 for threatened labor and a shortened cervix. She received magnesium and celestone x2 at that time. She has not yet started the vaginal progesterone that was prescribed. She was seen overnight on 06/20/17 with a negative FFN and had an exam in the office yesterday, 06/18/17 with a reportedly closed cervix. She presents complaining of contractions that increased last evening. SVE by attending /. Will admit for magnesium tocolysis, antibiotics, repeat transvaginal cervical length today, and MFM consult in am. Will transfer to hospital with level 3 NICU if any further cervical change or persistent contractions. Marcela Cohen MD Jun 22, 2017 04:21
[2017-06-22] MEDS: MAGNESIUM SULFATE 40 GM PREMIX 1,000 ML IV SCH ×2 (04:54→14:27)
--- NOTE | 2017-06-22 05:37 | HHI.HP ---
History & Physical H&P HPI Chief Complaint contractions Date Seen: Jun 22, 2017 Travel History International Travel<30 Days: No Contact w/Intl Traveler<30Days: No History of Present Illness HPI Ms. Ignacio is a 22 yo G1 at 24 5/7 weeks GA with Dichorionic diamniotic twin gestation who presents with concern for contractions. Per EMR Review- 06/21- Patient last seen by Dr. Plaza - cervix closed; feels thicker than 1.7cm. US for growth prescribed 06/21- Seen in OB ED for abdominal/vaginal pain and sore throat. Patient given Terbutaline x1. Patient given Amoxicillin for possible bacterial pharyngitis for sore throat and leukocytosis/left shift. 06/17-06/18- admitted for concern for labor. Patient had cervical length 17mm. Patient given Magnesium sulfate and Betamethasone x2. Patient with negative FFN Patient reports that she began feeling abdominal pain concerning for contractions this morning at ~1am. She felt that contractions were stronger than previously and that she had to hold her breath between them. Patient has noticed these occurring every few minutes. Since arriving to the OB ED, she has not noticed them. No vaginal bleeding or loss of vaginal fluid. No concern for loss of movement. Patient reports that she has had improvement in sore throat when drinking warm milk. Patient has not yet started taking Amoxicillin. Patient also reports being prescribed Progesterone to decrease risk of labor; she has not yet started this. No chest pain, shortness of breath, nausea/vomiting, dysuria, or other concerns at this time. : 1 History Past Medical History Medical History: Denies Significant Hx Obstetric History Obstetric History G1 with twin gestation Past Surgical History Surgical History: No Previous Surgery Family History Narrative Family History Mom asthma Dad DM Family History: Negative Social History Narrative Social History Per EMR- lives with fiance. Goes to [employer] [employer] Alcohol Use: No Tobacco Use: No Substance Abuse: No Allergies-Medications (Allergen,Severity, Reaction): Coded Allergies: No Known Allergies (Unverified Adverse Reaction, Unknown, 04/15/17) Home Meds Active Scripts W/O Vit A W/ Fe Carbo Pack (Citranatal Dha Pack) 27-1 & 250 Mg Pack, 1 EA PO DAILY for Nutritional Supplement, #30 BLISTER 11 Refills 30 day supply. Prov:Marcela Golden 04/02/17 Discontinued Scripts Nitrofurantoin Monohydrate Macrocrystals (Nitrofurantoin Monohydrate Macrocrystals) 100 Mg Cap, 100 MG PO BID for Infection, #14 CAP 0 Refills . Prov:Norm Rodriguez MD R2 05/18/17 Review of Systems General / Constitutional: No: Fever Eyes: No: Blurred Vision HENT: No: Headaches Cardiovascular: No: Chest Pain or Discomfort Respiratory: No: Short of Breath Gastrointestinal: Abdominal Pain (contractions), No: Nausea, Vomiting Genitourinary: No: Urgency, Dysuria Skin: No Rash, No Dryness Neurologic: No: Weakness, Dizziness Psychiatric: No: Anxiety, Depression Physical Exam BP 123/72 HR 73 RR 18 T 98.1 Narrative GENERAL: Well-nourished, well-developed patient. SKIN: Warm and dry. HEAD: Normocephalic and atraumatic. EYES: No scleral icterus. No injection or drainage. NECK: No thyromegaly or lymphadenopathy CARDIOVASCULAR: Regular rate and rhythm without murmurs RESPIRATORY: CTAB; normal rate ABDOMEN/GI: Abdomen soft, non-tender, bowel sounds present, no rebound, no guarding Gravid EXTREMITIES: No cyanosis or edema. BACK: Nontender without obvious deformity. No CVA tenderness. NEUROLOGICAL: Awake and alert. Motor and sensory grossly within normal limits. Normal speech. GENITOURINARY: Per Dr. Cohen's exam External Genitalia: intact and normal in appearance Cervix: Dilatation: fingertip Effacement: non-effaced Membranes: Intact Uterine Contractions: Irritability FHT's: Twin A Category: 1 Baseline: 150 Reactive: Y Variability: Mod Decels: None Twin B Category: 1 Baseline: 150 Reactive: Y Variability: Mod Decels: None Data Data Vital Signs Reviewed: Yes MDM Medical Record Reviewed: Yes Narrative Course / MDM 22 yo G1 at 24 5/7 weeks GA with Dichorionic diamniotic twin gestation who presents with concern for contractions. -Twins with category 1 rhythms -Uterine irritability on CTG -s/p Betamethasone x2, Magnesium 06/17-06/18 -FFN 06/17 negative -Leukocytosis 06/21 -Cervical exam fingertip dilation; changed from closed earlier on exam 06/21 Plan: -Continue to monitor EFM/CTG -Will admit for observation -Will give additional Magnesium -Will repeat CBC -With additional cervical change/contractions, will plan to transfer if needed Herberth Bernard MD, R3 Jun 22, 2017 05:37
[2017-06-22 05:39] LABS: AUTOMATED NEUTROPHIL # 11.2 TH/MM3 (1.8-7.7); BASOPHIL % 0.3 % (0.0-2.0); EOSINOPHIL # 0.1 TH/MM3 (0-0.4); EOSINOPHIL % 0.7 % (0.0-4.0); HEMATOCRIT 29.8 % (35.0-46.0); HEMOGLOBIN 9.9 GM/DL (11.6-15.3); LYMPH % 13.7 % (9.0-44.0); MEAN CELL VOLUME 86.4 FL (80.0-100.0); MEAN CORPUSCULAR HEMOGLOBIN 28.7 PG (27.0-34.0); MEAN CORPUSCULAR HGB CONC 33.2 % (32.0-36.0); MEAN PLATELET VOLUME 10.2 FL (7.0-11.0); MONO % 9.8 % (0.0-8.0); MONOCYTE # 1.5 TH/MM3 (0-0.9); NEUT % 75.5 % (16.0-70.0); PLATELET COUNT 287 TH/MM3 (150-450); RED BLOOD COUNT 3.45 MIL/MM3 (4.00-5.30); RED CELL DISTRIBUTION WIDTH 12.4 % (11.6-17.2); WHITE BLOOD COUNT 14.9 TH/MM3 (4.0-11.0)
[2017-06-22 06:27] LABS: BANDS 2 % (0-6); LYMPHOCYTES 10 % (9-44); METAMYELOCYTES 2 % (0-1); MONOCYTES 12 % (0-8); MYELOCYTES 7 % (0-0); NEUTROPHIL # MANUAL DIFF 11.3 TH/MM3 (1.8-7.7); POLYS (SEG NEUTROPHILS) 65 % (16-70)
[2017-06-22] MEDS ORDERED: PENICILLIN G POTASSIUM INJ 5,000,000 UNITS in SODIUM CHLORIDE 0.9% INJ 100 ML IV SCH (07:15)
[2017-06-22] MEDS ORDERED: INDOMETHACIN 50 MG CAP PO ONE (08:00)
[2017-06-22] MEDS ORDERED: PENICILLIN G POTASSIUM INJ 2,500,000 UNITS in SODIUM CHLORIDE 0.9% INJ 100 ML IV SCH (11:00)
[2017-06-22] MEDS: INDOMETHACIN 25 MG CAP PO SCH ×2 (14:39→19:46)
[2017-06-22] MEDS: PENICILLIN G POTASSIUM INJ 2,500,000 UNITS in SODIUM CHLORIDE 0.9% INJ 100 ML IV SCH ×2 (17:49→21:42)
[2017-06-22] MEDS: SODIUM CHLORIDE 0.9% FLUSH 10 ML FLUSH IV FLUSH SCH (21:00)
[2017-06-23] VITALS (18 sets, daily range): BP systolic 90–114; BP diastolic 44–75; PULSE 75–93; RESP 16–18; TEMP 98.5; O2SAT 98–99
[2017-06-23] MEDS: PENICILLIN G POTASSIUM INJ 2,500,000 UNITS in SODIUM CHLORIDE 0.9% INJ 100 ML IV SCH ×3 (01:44→09:24)
[2017-06-23] MEDS: INDOMETHACIN 25 MG CAP PO SCH ×2 (01:44→07:57)
[2017-06-23] MEDS: LACTATED RINGER'S 1000 ML INJ 1,000 ML IV SCH ×2 (04:00→20:15)
--- NOTE | 2017-06-23 08:18 | PD.OB.ANTE ---
Subjective Interval History Patient seen and examined this morning. She has no complaints this morning. She states that her last contractions were last night. She is not experiencing any vaginal bleeding, no leakage of fluids, no nausea or vomiting, no chest pain , no shortness of breath, no calf pain. She is feeling the babies move. Antepartum ROS: Reports: movement normal, Denies: New complaints, Loss of fluid, Vaginal bleeding, Contractions Objective Vital Signs Vital Signs Date Time Temp Pulse Resp B/P (MAP) Pulse Ox O2 Delivery O2 Flow Rate FiO2 06/23/17 05:00 80 98/54 (69) 06/23/17 04:00 90 114/75 (88) 06/23/17 03:16 16 06/23/17 03:15 80 90/44 (59) 06/23/17 00:55 81 99 06/23/17 00:50 87 98 06/23/17 00:45 83 98 06/23/17 00:40 89 99 06/23/17 00:35 84 98 06/23/17 00:30 93 98 06/23/17 00:25 90 98 06/23/17 00:20 83 99 06/23/17 00:15 75 99 06/23/17 00:10 82 99 06/23/17 00:05 81 99 06/23/17 00:00 81 100/59 (73) 99 06/23/17 00:00 81 06/22/17 23:33 98.0 16 06/22/17 23:30 83 98 06/22/17 23:25 83 98 06/22/17 23:20 82 98 06/22/17 23:15 81 99 06/22/17 23:10 83 99 06/22/17 23:05 90 99 06/22/17 23:00 93 118/70 (86) 100 06/22/17 23:00 98 06/22/17 22:10 83 100 06/22/17 22:05 85 100 06/22/17 22:00 87 111/62 (78) 100 06/22/17 22:00 89 06/22/17 21:15 81 100 06/22/17 21:10 76 100 06/22/17 21:05 78 100 06/22/17 21:00 84 115/62 (79) 96 06/22/17 21:00 83 06/22/17 20:20 88 96 06/22/17 20:15 88 96 06/22/17 20:10 89 96 06/22/17 20:05 89 96 06/22/17 20:00 94 06/22/17 20:00 90 108/60 (76) 96 06/22/17 19:51 97.4 06/22/17 19:00 94 115/66 (82) 06/22/17 15:00 16 06/22/17 14:55 84 100 06/22/17 14:00 16 06/22/17 13:00 16 06/22/17 12:55 86 06/22/17 12:55 100 06/22/17 12:50 82 06/22/17 12:50 100 06/22/17 12:45 100 06/22/17 12:45 82 06/22/17 12:40 100 06/22/17 12:40 81 06/22/17 12:35 100 06/22/17 12:35 81 06/22/17 12:30 100 06/22/17 12:30 79 06/22/17 12:27 98.4 06/22/17 12:25 100 06/22/17 12:25 80 06/22/17 12:20 78 06/22/17 12:20 100 06/22/17 12:15 100 06/22/17 12:15 82 06/22/17 12:10 81 06/22/17 12:10 100 06/22/17 12:05 81 100 06/22/17 12:00 85 115/64 (81) 100 06/22/17 12:00 85 06/22/17 12:00 16 06/22/17 11:55 79 100 06/22/17 11:50 80 100 06/22/17 11:45 79 100 06/22/17 11:40 80 100 06/22/17 11:35 78 100 06/22/17 11:30 82 100 06/22/17 11:25 86 100 06/22/17 11:20 91 100 06/22/17 11:15 88 100 06/22/17 11:10 82 100 06/22/17 11:05 78 100 06/22/17 11:00 16 06/22/17 11:00 79 06/22/17 11:00 77 121/67 (85) 99 06/22/17 10:55 78 99 06/22/17 10:50 75 99 06/22/17 10:45 75 99 06/22/17 10:40 79 99 06/22/17 10:35 77 99 06/22/17 10:30 77 99 06/22/17 10:25 80 99 06/22/17 10:20 77 99 06/22/17 10:15 75 99 06/22/17 10:10 76 99 06/22/17 10:05 75 99 06/22/17 10:00 16 06/22/17 10:00 72 06/22/17 10:00 73 119/65 (83) 99 06/22/17 09:55 74 06/22/17 09:55 99 06/22/17 09:50 73 99 06/22/17 09:45 73 99 06/22/17 09:40 72 100 06/22/17 09:35 75 100 06/22/17 09:30 72 100 06/22/17 09:25 74 100 06/22/17 09:20 77 100 06/22/17 09:15 93 100 06/22/17 09:10 79 100 06/22/17 09:05 82 100 06/22/17 09:00 16 06/22/17 09:00 76 116/65 (82) 100 06/22/17 09:00 77 06/22/17 08:55 89 100 06/22/17 08:50 84 100 06/22/17 08:45 77 100 06/22/17 08:40 85 100 06/22/17 08:35 97 100 06/22/17 08:30 77 100 06/22/17 08:25 79 100 06/22/17 08:20 76 100 Lab & Micro Results Test 06/22/17 18:36 HIV (1&2) Ab and P24 Ag, 4th Gener NONREACTIVE Rubella Immunity Screen IMMUNE Rubella Antibody, Quantitative 103.7 IU/mL Physical Exam GENERAL: Well-nourished, well-developed patient. CARDIOVASCULAR: Regular rate and rhythm without murmurs, gallops, or rubs. RESPIRATORY: Breath sounds equal bilaterally. No accessory muscle use. ABDOMEN/GI: Abdomen soft, non-tender. Fundus: [-] GENITOURINARY: External Genitalia: intact and normal in appearance Cervix: [-] Dilatation: [-] Effacement: [-] Station: [-] Presentation: [-] Membranes: [-] Uterine Contractions: [-] FHT's: Category: [-] Baseline: [-] Reactive: [-] Variability: [-] Decels: [-] EXTREMITIES: No cyanosis or edema, non-tender, without signs of DVT. Assessment and Plan Assessment and Plan 22 yo G1 at 24 6/7 weeks GA with Dichorionic diamniotic twin gestation who presents with concern for contractions. -Twins with category 1 rhythms -Uterine irritability on CTG -s/p Betamethasone x2, Magnesium 06/17-06/18 -FFN 06/17 negative -Leukocytosis 06/21 -Cervical exam fingertip dilation; changed from closed earlier on exam 06/21 Plan: -Continue to monitor EFM/CTG -Appt with MFM and OB diagnostics this AM -appreciate recommendations for further management options -Start vaginal progesterone one dose now, and next dose at bedside, d/c tomorrow and continue vaginal progesterone at home -IV Magnesium sulfate for 24hrs -Pen G IV q4h -Indomethacin 50mg po x1, then 25mg po q6h - labs HIV, Varicella, Rubella, ABO/Rh typing -With additional cervical change/contractions, will plan to transfer if needed Migdalia Grove MD R1 Jun 23, 2017 08:18
[2017-06-23] MEDS: SODIUM CHLORIDE 0.9% FLUSH 10 ML FLUSH IV FLUSH SCH ×2 (09:00→21:09)
[2017-06-23] MEDS ORDERED: PROGESTERONE 100 MG OTHER ONE (12:00)
[2017-06-23] MEDS ORDERED: PROGESTERONE 100 MG OTHER SCH (21:00)
[2017-06-24] MEDS: LACTATED RINGER'S 1000 ML INJ 1,000 ML IV SCH (04:15)
--- NOTE | 2017-06-24 08:19 | PD.OB.ANTE ---
Subjective Interval History Patient seen and examined this morning. She states that she is doing well. No complaints. States that she has not had any contractions since the other night. She is eating/drinking well. Only ambulates to the bathroom, but otherwise stays in bed. She understands that she will have to continue bed rest. No chest pain, no shortness of breath, no bilateral calf pain, no nausea/vomiting. Antepartum ROS: Reports: movement normal, Denies: New complaints, Loss of fluid, Vaginal bleeding, Contractions Objective Lab & Micro Results Test 06/23/17 15:20 Hepatitis B Surface Antigen NONREACTIVE Physical Exam GENERAL: Well-nourished, well-developed patient. CARDIOVASCULAR: Regular rate and rhythm without murmurs, gallops, or rubs. RESPIRATORY: Breath sounds equal bilaterally. No accessory muscle use. ABDOMEN/GI: Abdomen soft, non-tender. Gravid to 25 weeks FHT's: Category: 1 Baseline: Twin A and B 140s Reactive: yes Variability: moderate Decels: none EXTREMITIES: No cyanosis or edema, non-tender, without signs of DVT. Assessment and Plan Problem List: (1) Threatened labor ICD Codes: O47.00 - False labor before 37 completed weeks of gestation, unspecified trimester Qualifiers: Qualified Codes: O47.02 - False labor before 37 completed weeks of gestation , second trimester Assessment and Plan 22 yo G1 at 25/0 weeks GA with Dichorionic diamniotic twin gestation who presents with concern for contractions. -Twins with category 1 rhythms -Uterine irritability on CTG -s/p Betamethasone x2, Magnesium 06/17-06/18 -FFN 06/17 negative -Leukocytosis 06/21 -Cervical exam fingertip dilation on admission; changed from closed earlier on exam 06/21 Plan: -Continue to monitor EFM/CTG, no contractions shown overnight -Appt with MFM and OB diagnostics on 06/23 -appreciate recommendations for further management options -Start vaginal progesterone one dose now, 06/22, and next dose at bedside, d/ c 06/24 and continue vaginal progesterone at home -IV Magnesium sulfate for 24hrs, d/c'd yesterday -Pen G IV q4h -Indomethacin 50mg po x1, then 25mg po q6h, d/c'd yesterday - labs -B+ -HIV nonreactive -Rubella immune -Hep B nonreactive -Varicella and RPR pending D/C home today, continue bed rest and vaginally progesterone HS Migdalia Grove MD R1 Jun 24, 2017 08:19
[2017-06-24] MEDS ORDERED: PROG100C PO (08:30)
--- NOTE | 2017-06-24 08:30 | HHI.DCPOC ---
Discharge Care Plan Diagnosis: (1) Threatened labor Report Symptoms to Your Doctor -Temperature above 100.5 degrees -Redness, of incision or excessive or foul smelling drainage -Unusual pain or calf pain -Increased vaginal bleeding -Painful or difficulty urinating -Feelings of extreme sadness or anxiety after 2 weeks Goals to Promote Your Health * To prevent worsening of your condition and complications * To maintain your health at the optimal level Directions to Meet Your Goals Take your medications as prescribed Follow your dietary instruction Follow activity as directed Ensure plenty of rest for recovery Drink fluids for hydration Keep your appointments as scheduled Take your immunizations and boosters as scheduled If your symptoms worsen call your PCP, if no PCP go to Urgent Care Center or Emergency Room Smoking is Dangerous to Your Health. Avoid second hand smoke Call the 24-hour crisis hotline for domestic abuse at Migdalia Grove MD R1 Jun 24, 2017 08:30
[2017-06-24] MEDS: SODIUM CHLORIDE 0.9% FLUSH 10 ML FLUSH IV FLUSH SCH (09:00)
== END 2017-06-24 12:00 | disposition home or self-care (01) ==
LOC: HOBED 03:10 → H2EA 04:29
PROVIDERS: ADMIT Obstetrics & Gynecology; ATTEND Obstetrics & Gynecology
DX: O47.02 False labor before 37 completed weeks of gestation, second trimester (principal); O30.042 Twin pregnancy, dichorionic/diamniotic, second trimester; O26.892 Other specified pregnancy related conditions, second trimester; R10.9 Unspecified abdominal pain; R10.2 Pelvic and perineal pain; R82.90 Unspecified abnormal findings in urine; J02.9 Acute pharyngitis, unspecified; Z3A.24 24 weeks gestation of pregnancy
CPT/HCPCS: 76816; 76817; 83735; 85007; 85027; 86592; 86703; 86762; 86787; 86900; 86901; 87340; 96365; 96366; 99285; G0378; J2540; J3475; J7120

== ENCOUNTER → 2017-07-08 | Outpatient (CLI) | payer OTHER ==
[~2017-07-08] MED LIST changes: +PROG100C PO
== END ==
LOC: HPND 08:43
PROVIDERS: ATTEND Obstetrics & Gynecology
DX: O30.042 Twin pregnancy, dichorionic/diamniotic, second trimester (principal); O26.872 Cervical shortening, second trimester
CPT/HCPCS: 76815; 76817

== ENCOUNTER 2017-07-09 10:08 | Observation (INO) | payer OTHER ==
[2017-07-09] MEDS ORDERED: SODIUM CHLORIDE 0.9% FLUSH 10 ML FLUSH IV FLUSH PRN (10:45)
[2017-07-09] MEDS ORDERED: ONDANSETRON ODT 4 MG TAB PO PRN (10:45)
[2017-07-09] MEDS ORDERED: ACETAMINOPHEN 325 MG TAB PO PRN (10:45)
[2017-07-09] MEDS ORDERED: BETAMETHASONE SOD PHOS/ACETATE SUSP 30 MG/5 ML VIAL IM SCH (10:45)
[2017-07-09] MEDS ORDERED: OXYTOCIN 30 UNITS-500ML PREMIX 500 ML IV ONE (11:15)
[2017-07-09] MEDS ORDERED: LIDOCAINE HCL 1% 50 ML VIAL INFIL PRN (11:15)
[2017-07-09] MEDS ORDERED: MINERAL OIL 10 ML VIAL TOPICAL PRN (11:15)
--- NOTE | 2017-07-09 11:20 | PD ---
HPI Chief Complaint mucous discharge Date Seen: Jul 09, 2017 Time Seen: 10:45 Travel History International Travel<30 Days: No Contact w/Intl Traveler<30Days: No Known Affected Area: No History of Present Illness HPI Ms Ignacio is a 22YO at 27/1 weeks followed by CFW with di/di twin gestation and short cervix who p/w loss of mucous plug this morning. Pt was seen yesterday by Dr Plaza and found to have cervix dilated to 1cm. Pt reports seeing mucousy discarge this morning about 9AM. Pt is feeling no ctx and has no VB. Pt denies CP, SOB, N/V/D, DVT leg pain. Pt has been noted to have changing cervical length with progressive measurements of: 25-27mm on 05/05; 17mm on 06/17; 32mm on 06/23; and 16-20mm on 07/08. Weeks Gestation: 27 Para: 0 : 1 History Past Medical History Medical History: Denies Significant Hx Obstetric History Obstetric History short cervix via multiple diagnostic US studies Past Surgical History Surgical History: No Previous Surgery Family History Narrative Family History Father with DM Social History Alcohol Use: No Tobacco Use: No Substance Abuse: No Allergies-Medications (Allergen,Severity, Reaction): Coded Allergies: No Known Allergies (Unverified Adverse Reaction, Unknown, 04/15/17) Home Meds Active Scripts Progesterone Micronized (Progesterone Micronized) 100 Mg Cap, 100 MG PO HS for 30 Days, #30 CAP 0 Refills Prov:Migdalia Grove MD 06/24/17 W/O Vit A W/ Fe Carbo Pack (Citranatal Dha Pack) 27-1 & 250 Mg Pack, 1 EA PO DAILY for Nutritional Supplement, #30 BLISTER 11 Refills 30 day supply. Prov:Marcela Golden 04/02/17 Review of Systems General / Constitutional: No: Fever, Chills Eyes: No: Blurred Vision, Visual changes HENT: No: Headaches Cardiovascular: No: Chest Pain or Discomfort, Palpitations Respiratory: Short of Breath (on exertion), No: Cough Gastrointestinal: No: Nausea, Vomiting, Diarrhea, Abdominal Pain, Constipation Genitourinary: Discharge, No: Dysuria, Vaginal Bleeding Musculoskeletal: No: Cramping, Edema Skin: No Rash Neurologic: No: Weakness, Dizziness, Headache Physical Exam BP 117/69 / HR 85 Narrative GENERAL: Well-nourished, well-developed patient lying in bed in NAD. SKIN: Warm and dry. No rash, lesions or ecchymoses. HEAD: Normocephalic and atraumatic. EYES: No scleral icterus. No injection or drainage. EOMI. ENT: No nasal drainage noted. Mucous membranes pink. Airway patent. NECK: Supple, trachea midline. No JVD. CARDIOVASCULAR: Regular rate and rhythm without murmurs, gallops, or rubs. RESPIRATORY: Breath sounds equal bilaterally. No accessory muscle use. No increased WOB. ABDOMEN/GI: Abdomen soft, non-tender, bowel sounds present, no rebound, no guarding Gravid to 27 weeks size GENITOURINARY: Cervix: [-] Cervix measured 07/08 at 1cm dilation; deferring due to short cervix Dilatation: [-] Effacement: [-] Station: [-] Presentation: [-] Membranes: intact Uterine Contractions: irregular, q4-10 min FHT's: age appropriate x2 EXTREMITIES: No cyanosis or edema. BACK: Nontender without obvious deformity. No CVA tenderness. NEUROLOGICAL: Awake and alert. Motor and sensory grossly within normal limits. Five out of 5 muscle strength in all muscle groups. Normal speech. Data Data Vital Signs Reviewed: Yes Orders Orders Place In Observation (07/09/17 ) Diet Regular Basic (07/09/17 Lunch) Vital Signs (Adult) KATIANA.[id number]-DMVUT AWAKE (07/09/17 10:44) Heart (07/09/17 10:44) ^ Monitor (07/09/17 10:44) Activity Bed Rest With Brp (07/09/17 10:44) Acetaminophen (Tylenol) (07/09/17 10:45) Zaoyxisq-Dbc-Bhcwr-Iron Prenat (Stuartna (07/10/17 09:00) Sodium Chloride 0.9% Flush (Ns Flush) (07/09/17 21:00) Sodium Chloride 0.9% Flush (Ns Flush) (07/09/17 10:45) Ondansetron Odt (Zofran Odt) (07/09/17 10:45) Betamethasone Inj (Celestone Soluspan In (07/09/17 10:45) (Nf) W/O Vit A W/ Fe Carbo Pack (07/10/17 09:00) (Nf) Progesterone Micronized (07/09/17 21:00) MDM Medical Record Reviewed: Yes Narrative Course / MDM 22YO at 27/1 weeks p/w loss of mucous plug and short cervix. Admit for OBS. FHT age appropriate strip x2 1. Di/Di twin gestation -Continuous toco and monitoring -Routine L&D labs -NST BID 2. Short cervix (dilated to 1cm 07/08/17) Progressive cervical measurements thus far: 05/05 - 25-27mm 06/17 - 17mm 06/23 - 32mm 07/08 - 16-20mm -Admit to antepartum OBS -Rescue Betamethasone -Continue Prometrium vaginal suppository -Continue pelvic and bed rest -Labs as above Dispo: unclear Pt seen and dw Rupinder Chris and Calista Meyer Diagnosis Diagnosis: Primary Impression: Threatened labor Qualified Codes: O47.03 - False labor before 37 completed weeks of gestation, third trimester Additional Impressions: Antepartum cervical shortening Dichorionic diamniotic twin in third trimester Garrison Haas MD R1 Jul 09, 2017 11:20
[2017-07-09] MEDS ORDERED: PROGESTERONE MICRONIZED 100 MG SCH (11:30)
[2017-07-09 11:58] LABS: AUTOMATED NEUTROPHIL # 5.4 TH/MM3 (1.8-7.7); BASOPHIL % 0.5 % (0.0-2.0); EOSINOPHIL # 0.1 TH/MM3 (0-0.4); EOSINOPHIL % 0.7 % (0.0-4.0); HEMATOCRIT 29.5 % (35.0-46.0); HEMOGLOBIN 9.7 GM/DL (11.6-15.3); LYMPH % 17.7 % (9.0-44.0); LYMPHOCYTE # 1.4 TH/MM3 (1.0-4.8); MEAN CORPUSCULAR HEMOGLOBIN 28.3 PG (27.0-34.0); MEAN CORPUSCULAR HGB CONC 32.9 % (32.0-36.0); MONO % 12.2 % (0.0-8.0); NEUT % 68.9 % (16.0-70.0); PLATELET COUNT 226 TH/MM3 (150-450); RED BLOOD COUNT 3.44 MIL/MM3 (4.00-5.30); RED CELL DISTRIBUTION WIDTH 12.8 % (11.6-17.2); WHITE BLOOD COUNT 7.8 TH/MM3 (4.0-11.0)
[2017-07-09] MEDS ORDERED: LACTATED RINGER'S 1000 ML INJ 1,000 ML IV SCH (12:20)
[2017-07-09 13:00] LABS: BANDS 4 % (0-6); BASOPHILS 1 % (0-2); LYMPHOCYTES 18 % (9-44); METAMYELOCYTES 3 % (0-1); MONOCYTES 9 % (0-8); MYELOCYTES 2 % (0-0); NEUTROPHIL # MANUAL DIFF 5.6 TH/MM3 (1.8-7.7); POLYS (SEG NEUTROPHILS) 63 % (16-70)
[2017-07-09] MEDS ORDERED: TERBUTALINE INJ 1 MG/ML AMP SQ ONE (13:15)
[2017-07-09 13:19] VITALS: BP 110/63; PULSE 83
[2017-07-09 13:23] VITALS: RESP 18; TEMP 98.7
--- NOTE | 2017-07-09 14:09 | PD.LABORPN ---
Subjective Subjective 27 week twins continues to contract irregularly, short cervix documented ultrasound yesterday cervical length 16 mm and on digital exam is 1 cm dilated Patient with labor issues for a month and she is received steroids and rescue steroids, she has been on magnesium sulfate past but not this admission After discussion with the neonatology staff, patient would best be served by being transferred to [facility] ,discussed with the maternal medicine specialist at who accepted transfer, Objective Vital Signs Vital Signs Date Time Temp Pulse Resp B/P (MAP) Pulse Ox O2 Delivery O2 Flow Rate FiO2 07/09/17 13:23 98.7 07/09/17 13:23 18 07/09/17 13:19 83 110/63 (79) Objective Pelvic Exam: Cervix: [-] Dilatation: [1-] Effacement: cx length 16 mm Presentation: [ceph/trans-] Membranes: [intact ] Uterine Contractions: [-irreg] FHT's: Category: [1 /-] Baseline: [133/140-] Reactive: [-R] Variability: [-mod] Decels: [-none] Weeks Gestation: 27 Assessment/Plan Assessment and Plan at 27 week twin gestation labor for over a month now with cervical change seen on ultrasound showing cervix 1 centimeter dilated length 16 mm. Contractions currently are irregular and sporadic Plan is transfer to a level 3 maternal- medicine unit with level 3 NICU Lm Appiah II, MD Jul 09, 2017 14:09
[2017-07-09 16:21] LABS: BILIRUBIN, URINE NEG (NEG); BLOOD, URINE NEG (NEG); GLUCOSE,URINE NEG (NEG); KETONE, URINE NEG (NEG); MUCUS URINE FEW /lpf (OCC); NITRITE,URINE NEG (NEG); PH, URINE 6.5 (5.0-8.5); SQUAMOUS EPITHELIAL CELL URINE 9 /hpf (0-5); URINE COLOR YELLOW (YELLW/STRAW); URINE LEUKOCYTE ESTERASE LARGE (NEG)
[2017-07-09] MEDS ORDERED: SODIUM CHLORIDE 0.9% FLUSH 10 ML FLUSH IV FLUSH SCH (21:00)
[2017-07-10] MEDS ORDERED: PRENATAL VITAMIN CHEWABLE TAB PO SCH (09:00)
[2017-07-10] MEDS ORDERED: MULTIVIT/MIN/PREN/FOL AC/IRON PRENATAL TAB PO SCH (09:00)
== END 2017-07-09 16:54 | disposition short-term general hospital (02) ==
LOC: HOBED 10:08 → H2EA 11:04
PROVIDERS: ADMIT Obstetrics & Gynecology; ATTEND Obstetrics & Gynecology
DX: O30.042 Twin pregnancy, dichorionic/diamniotic, second trimester (principal); O26.872 Cervical shortening, second trimester; O60.02 Preterm labor without delivery, second trimester; Z3A.27 27 weeks gestation of pregnancy
CPT/HCPCS: 80307; 81001; 85007; 85027; 86900; 86901; 87086; 96372; 99285; G0378; G0481; J3105; J7120

== ENCOUNTER 2017-07-19 17:14 | Emergency (ER) | payer OTHER ==
--- NOTE | 2017-07-19 18:11 | PD ---
HPI Chief Complaint Decreased movement Date Seen: Jul 19, 2017 Time Seen: 18:06 Travel History International Travel<30 Days: No Contact w/Intl Traveler<30Days: No Known Affected Area: No History of Present Illness HPI Patient is a 22-year-old who is presently at 28 weeks and 4 days with dichorionic diamniotic twin . She has been followed for a short cervix and threatened labor and has been hospitalized on 2 different occasions within the past 4 weeks. Patient was discharged from [facility] last Wednesday on oral progesterone and has received betamethasone and magnesium sulfate 2 weeks ago. Last cervical exam was approximately a week ago cervix was noted to be 1 cm dilated and 0.7 cm in length. Patient denies contractions, abdominal pain, vaginal discharge, or vaginal bleeding patient has a follow-up to perinatology this week. Weeks Gestation: 28 (28.4) Para: 0 : 1 History Past Medical History Medical History: Denies Significant Hx Past Surgical History Surgical History: No Previous Surgery Family History Family History: Negative Social History Alcohol Use: No Tobacco Use: No Substance Abuse: No Allergies-Medications (Allergen,Severity, Reaction): Coded Allergies: No Known Allergies (Unverified Adverse Reaction, Unknown, 04/15/17) Home Meds Active Scripts Progesterone Micronized (Progesterone Micronized) 100 Mg Cap, 100 MG PO HS for 30 Days, #30 CAP 0 Refills Prov:Migdalia Grove MD 06/24/17 W/O Vit A W/ Fe Carbo Pack (Citranatal Dha Pack) 27-1 & 250 Mg Pack, 1 EA PO DAILY for Nutritional Supplement, #30 BLISTER 11 Refills 30 day supply. Prov:Marcela Golden 04/02/17 Review of Systems Except as stated in HPI: all other systems reviewed are Neg Physical Exam Narrative GENERAL: Well-nourished, well-developed patient. SKIN: Warm and dry. HEAD: Normocephalic and atraumatic. EYES: No scleral icterus. No injection or drainage. ENT: No nasal drainage noted. Mucous membranes pink. Airway patent. NECK: Supple, trachea midline. No JVD. CARDIOVASCULAR: Regular rate and rhythm without murmurs, gallops, or rubs. RESPIRATORY: Breath sounds equal bilaterally. No accessory muscle use. ABDOMEN/GI: Abdomen soft, non-tender, bowel sounds present, no rebound, no guarding Gravid to [31-] weeks size Fundal Height: [-] GENITOURINARY: External Genitalia: intact and normal in appearance BUS glands: [-Normal] Cervix: [-Posterior] Dilatation: [-1] Effacement: [-50] Station: [-3-] Presentation: [-Vertex] Membranes: [intact or ruptured] intact Uterine Contractions: [-] General irritability FHT's: Twin A, category 1, baseline 140 with moderate variability Twin B, category 1, baseline 145 with moderate variability EXTREMITIES: No cyanosis or edema. BACK: Nontender without obvious deformity. No CVA tenderness. NEUROLOGICAL: Awake and alert. Motor and sensory grossly within normal limits. Five out of 5 muscle strength in all muscle groups. Normal speech. Data Data Vital Signs Reviewed: Yes MDM Medical Record Reviewed: Yes Plan 22-year-old with di-, di twin gestation at 28 weeks 4 days History of short cervix and history of labor last week discharged after magnesium sulfate and betamethasone continuing on oral progesterone as recommended by [facility] Normal nonstress test consistent with 28 weeks both babies Continue follow-up this week as directed Diagnosis Diagnosis: Primary Impression: Antepartum cervical shortening Additional Impression: Decreased movement during in third trimester, antepartum Disposition: 01 DISCHARGE HOME Dannielle Macias MD Jul 19, 2017 18:11
== END 2017-07-19 18:35 | disposition home or self-care (01) ==
LOC: HOBED 17:14
DX: O26.873 Cervical shortening, third trimester (principal); O36.8130 Decreased fetal movements, third trimester, not applicable or unspecified; O30.043 Twin pregnancy, dichorionic/diamniotic, third trimester; Z3A.28 28 weeks gestation of pregnancy; Z79.899 Other long term (current) drug therapy
CPT/HCPCS: 99284

== ENCOUNTER → 2017-07-21 | Outpatient (CLI) | payer OTHER ==
[~2017-07-21] MED LIST changes: +TUMS500C CHEW
== END ==
LOC: HPND 09:06
PROVIDERS: ATTEND Obstetrics & Gynecology
DX: O26.873 Cervical shortening, third trimester (principal); O30.043 Twin pregnancy, dichorionic/diamniotic, third trimester
CPT/HCPCS: 59025; 76816; 76817

== ENCOUNTER 2017-07-29 09:16 | Observation (INO) | payer OTHER ==
[2017-07-29] MEDS ORDERED: SODIUM CHLORIDE 0.9% FLUSH 10 ML FLUSH IV FLUSH ×2 (10:30)
[2017-07-29] MEDS ORDERED: ONDANSETRON HCL 4 MG/2 ML VIAL IV PUSH (10:30)
== END 2017-07-29 11:18 | disposition left against medical advice (07) ==
LOC: HOBED 09:16 → H2EA 10:34
DX: O26.873 Cervical shortening, third trimester (principal); O30.003 Twin pregnancy, unspecified number of placenta and unspecified number of amniotic sacs, third trimester; Z3A.30 30 weeks gestation of pregnancy
CPT/HCPCS: 99285

== ENCOUNTER 2017-07-29 17:39 | Inpatient (IN) | payer OTHER ==
[~2017-07-29 17:39] MED LIST changes: -TUMS500C CHEW
[2017-07-29 18:09] VITALS: BP 126/66; PULSE 82
--- NOTE | 2017-07-29 18:12 | HHI.PR ---
[employer] Note Note HPI HPI Chief Complaint vaginal pressure Date Seen: July 29, 2017 Time Seen: 18:05 Travel History International Travel<30 Days: No Contact w/Intl Traveler<30Days: No Known Affected Area: No History of Present Illness HPI 22y/o G1 @ 30.0wks with mariana twins and cervical insufficiency. Was seen for vaginal pressure earlier and admitted but left AMA. Is wanting to be delivered 2' to discomfort. Willing to be admitted. Cervical length on 07/21 0.9cm. Cvx exam this morning . +FM x2. No ctx, LOF, VB. Weeks Gestation: 30 Para: 0 : 1 History (Limited) History Past Medical History Medical History: Denies Significant Hx Past Surgical History Surgical History: No Previous Surgery Family History Family History: Negative Social History Alcohol Use: No Tobacco Use: No Substance Abuse: No Allergies-Medications Allergies-Medications (Allergen,Severity, Reaction): Coded Allergies: No Known Allergies (Unverified Adverse Reaction, Unknown, 07/29/17) Home Meds Active Scripts Progesterone Micronized (Progesterone Micronized) 100 Mg Cap, 100 MG PO HS for 30 Days, #30 CAP 0 Refills Prov:Migdalia Grove MD R1 06/24/17 W/O Vit A W/ Fe Carbo Pack (Citranatal Dha Pack) 27-1 & 250 Mg Pack, 1 EA PO DAILY for Nutritional Supplement, #30 BLISTER 11 Refills 30 day supply. Prov:Marcela Golden 04/02/17 ROS Review of Systems Except as stated in HPI: all other systems reviewed are Neg Physical Exam Physical Exam Narrative General: well developed, well nourished, no acute distress HEENT: normocephalic atraumatic, extraocular movements intact, neck supple Abdomen: soft, gravid, nontender, nondistended Extremities: full range of motion Skin: normal coloration, no rashes, no suspicious skin lesions noted Neurologic: cranial nerves 2-12 grossly intact, normal muscle tone, normal gait Psychiatric: normal mood and affect, appropriate Data Data Data Vital Signs Reviewed: Yes Orders Orders Ob (2e) Additional Admit Info (07/29/17 18:03) Admit To Inpatient (07/29/17 ) Diet Regular Basic (07/29/17 Dinner) Vital Signs (Adult) KATIANA.P0P-EBVCF AWAKE (07/29/17 18:03) Heart KATIANA.QSHIFT (07/29/17 18:03) Activity Bed Rest With Brp (07/29/17 18:03) Activity Bed Rest (07/29/17 18:03) Acetaminophen (Tylenol) (07/29/17 18:15) Sofkrfwj-Ejn-Itqll-Iron Prenat (Stuartna (07/30/17 09:00) Docusate Sodium (Colace) (07/30/17 09:00) Al-Mag Hy-Si 40-40-4 Mg/Ml Liq (Mag-Al P (07/29/17 18:15) Sodium Chloride 0.9% Flush (Ns Flush) (07/29/17 21:00) Sodium Chloride 0.9% Flush (Ns Flush) (07/29/17 18:15) Zolpidem (Ambien) (07/29/17 18:15) Ondansetron Odt (Zofran Odt) (07/29/17 18:15) Ferrous Sulfate (Ferrous Sulfate) (07/29/17 21:00) Inpatient Certification (07/29/17 ) Type And Screen (07/29/17 18:03) Cbc No Diff, Includes Plts (07/29/17 18:03) MDM MDM Plan 22y/o G1 @ 30.0wks with mariana twins, cervical insufficiency. -- admit to [facility] -- SLIV -- FHTs BID strips -- bedrest/T-neves -- SCDs -- regular diet -- s/s of labor, BMZ rescue and CP mag Counseling provided to pt and FOB explaining why delivery is prohibited at this gestational age. Discussed risks of CP, resp distress, and extended NICU stay with severe prematurity. Reviewed that even if PPROM occurred or PTL, we would intervene to stop it and prolong preg. Reviewed 39wk rule and no elective inductions. Questions answered. Pt voiced that she is committed to stay. Diagnosis Diagnosis: Primary Impression: 30 weeks gestation of Additional Impressions: Dichorionic diamniotic twin in third trimester Cervical incompetence affecting management of in third trimester, antepartum Stephen Chris MD July 29, 2017 18:11 Stephen Chris MD July 29, 2017 18:12
[2017-07-29] MEDS ORDERED: SODIUM CHLORIDE 0.9% FLUSH 10 ML FLUSH IV FLUSH PRN (18:15)
[2017-07-29] MEDS ORDERED: ALUMINUM/MAGNESIUM/SIMETH 30 ML CUP PO PRN (18:15)
[2017-07-29] MEDS ORDERED: ACETAMINOPHEN 325 MG TAB PO PRN (18:15)
[2017-07-29] MEDS ORDERED: ZOLPIDEM TARTRATE 5 MG TAB PO PRN (18:15)
[2017-07-29] MEDS ORDERED: ONDANSETRON ODT 4 MG TAB PO PRN (18:15)
[2017-07-29 19:30] LABS: HEMATOCRIT 27.8 % (35.0-46.0); HEMOGLOBIN 9.3 GM/DL (11.6-15.3); MEAN CELL VOLUME 83.7 FL (80.0-100.0); MEAN CORPUSCULAR HEMOGLOBIN 27.9 PG (27.0-34.0); MEAN CORPUSCULAR HGB CONC 33.3 % (32.0-36.0); MEAN PLATELET VOLUME 10.2 FL (7.0-11.0); PLATELET COUNT 221 TH/MM3 (150-450); RED BLOOD COUNT 3.32 MIL/MM3 (4.00-5.30); RED CELL DISTRIBUTION WIDTH 13.4 % (11.6-17.2); WHITE BLOOD COUNT 6.7 TH/MM3 (4.0-11.0)
[2017-07-29] MEDS ORDERED: TUMS500C CHEW (19:43)
[2017-07-29] MEDS: FERROUS SULFATE 325 MG (65 MG ELEMENTAL IRON) TAB PO SCH (20:38)
[2017-07-29] MEDS: SODIUM CHLORIDE 0.9% FLUSH 10 ML FLUSH IV FLUSH SCH (20:38)
[2017-07-30] VITALS (7 sets, daily range): BP systolic 114–119; BP diastolic 56–64; PULSE 81–99; RESP 16–18; TEMP 98.2–98.3
--- NOTE | 2017-07-30 09:03 | PD.OB.ANTE ---
Subjective Interval History No acute events overnight Patient doing well this morning No complaints Denies abdominal pain, chest pain, shortness of breath Antepartum ROS: Denies: New complaints, Loss of fluid, Vaginal bleeding, movement normal, Contractions, Other Objective Vital Signs Vital Signs Date Time Temp Pulse Resp B/P (MAP) Pulse Ox O2 Delivery O2 Flow Rate FiO2 07/29/17 18:09 82 126/66 (86) Lab & Micro Results Test 07/29/17 18:40 White Blood Count 6.7 TH/MM3 Red Blood Count 3.32 MIL/MM3 Hemoglobin 9.3 GM/DL Hematocrit 27.8 % Mean Corpuscular Volume 83.7 FL Mean Corpuscular Hemoglobin 27.9 PG Mean Corpuscular Hemoglobin Concent 33.3 % Red Cell Distribution Width 13.4 % Platelet Count 221 TH/MM3 Mean Platelet Volume 10.2 FL Physical Exam GENERAL: Well-nourished, well-developed patient. CARDIOVASCULAR: Regular rate and rhythm without murmurs, gallops, or rubs. RESPIRATORY: Breath sounds equal bilaterally. No accessory muscle use. FHT's: Category: 1 Baseline: 130s Reactive: yes Variability: moderate Decels: none EXTREMITIES: No cyanosis or edema, non-tender, without signs of DVT. Assessment and Plan Assessment and Plan 22y/o G1 @ 30.0wks with mariana twins and cervical insufficiency. -- FHTs BID strips, category 1 --Contractions seen on tocometer, will administer 1L bolus of LR, Fentanyl 25mcg , and Terbutaline 0.5 -- bedrest/T-neves -- SCDs -- regular diet sdw Latia Valdes MD R1 July 30, 2017 09:03
[2017-07-30] MEDS: FERROUS SULFATE 325 MG (65 MG ELEMENTAL IRON) TAB PO SCH ×2 (09:10→21:00)
[2017-07-30] MEDS: MULTIVIT/MIN/PREN/FOL AC/IRON PRENATAL TAB PO SCH (09:10)
[2017-07-30] MEDS: DOCUSATE SODIUM 100 MG CAP PO SCH (09:10)
[2017-07-30] MEDS: SODIUM CHLORIDE 0.9% FLUSH 10 ML FLUSH IV FLUSH SCH ×2 (09:12→21:00)
[2017-07-30] MEDS ORDERED: SODIUM CHLOR 0.9% 1000 ML INJ 1,000 ML IV ONE (10:30)
[2017-07-30] MEDS ORDERED: TERBUTALINE INJ 1 MG/ML AMP SQ ONE (11:00)
[2017-07-30] MEDS ORDERED: LACTATED RINGER'S 1000 ML INJ 1,000 ML IV ONE (11:00)
[2017-07-30] MEDS: TERBUTALINE SULFATE 5 MG TAB PO SCH ×2 (13:35→18:53)
[2017-07-30] MEDS ORDERED: NIFEdipine 10 MG CAP PO ONE (14:00)
[2017-07-30] MEDS: LACTATED RINGER'S 1000 ML INJ 1,000 ML IV SCH ×2 (15:20→23:20)
[2017-07-30] MEDS ORDERED: LACTATED RINGER'S 1000 ML INJ 500 ML IV ONE (15:30)
[2017-07-31] MEDS: TERBUTALINE SULFATE 5 MG TAB PO SCH ×3 (06:00→12:00)
[2017-07-31] MEDS: LACTATED RINGER'S 1000 ML INJ 1,000 ML IV SCH ×3 (07:20→23:20)
--- NOTE | 2017-07-31 07:52 | PD.OB.ANTE ---
Subjective Interval History Patient seen and examined this morning. She does not have any specific complaints. Denies leakage of fluid. Denies any further contractions since yesterday afternoon. Endorses +FM. Denies fevers or chills, chest pain, dyspnea , abdominal pain. Antepartum ROS: Reports: movement normal, Denies: New complaints, Loss of fluid, Vaginal bleeding, Contractions Objective Vital Signs Vital Signs Date Time Temp Pulse Resp B/P (MAP) Pulse Ox O2 Delivery O2 Flow Rate FiO2 07/30/17 19:45 99 18 119/64 (82) 07/30/17 19:45 98.2 07/30/17 15:17 98.3 07/30/17 14:00 16 07/30/17 13:30 89 119/56 (77) 07/30/17 11:00 16 07/30/17 10:53 83 114/57 (76) 07/30/17 09:50 81 116/59 (78) Physical Exam GENERAL: Well-nourished, well-developed patient. CARDIOVASCULAR: Regular rate and rhythm without murmurs, gallops, or rubs. RESPIRATORY: Breath sounds equal bilaterally. No accessory muscle use. FHT's: Category: 1 Baseline: 140s Reactive: +accels Variability: moderate Decels: none EXTREMITIES: No cyanosis or edema, non-tender, without signs of DVT. Assessment and Plan Assessment and Plan 22y/o G1 @ 30/2 wks with mariana twins and cervical insufficiency. -- FHTs BID strips, category 1 -- Contractions seen on tocometer 07/30 afternoon, s/p 1L bolus of LR, Fentanyl 25mcg, and Terbutaline 0.5 -- No further contractions -- bedrest/T-neves -- SCDs -- regular diet dw Kody Miguel MD R2 July 31, 2017 07:52
[2017-07-31 08:18] VITALS: BP 126/72; PULSE 102
[2017-07-31] MEDS: FERROUS SULFATE 325 MG (65 MG ELEMENTAL IRON) TAB PO SCH ×2 (09:00→21:00)
[2017-07-31] MEDS: SODIUM CHLORIDE 0.9% FLUSH 10 ML FLUSH IV FLUSH SCH ×2 (09:00→21:00)
[2017-07-31] MEDS: MULTIVIT/MIN/PREN/FOL AC/IRON PRENATAL TAB PO SCH (09:00)
[2017-07-31] MEDS: DOCUSATE SODIUM 100 MG CAP PO SCH (09:00)
[2017-07-31 12:31] VITALS: BP 118/56; PULSE 113; RESP 18; TEMP 98.2
[2017-07-31] MEDS ORDERED: FAMOTIDINE 20 MG TAB PO ONE (19:15)
[2017-07-31 21:18] VITALS: BP 117/56; PULSE 85
[2017-07-31 22:00] VITALS: RESP 18; TEMP 98.2
[2017-08-01] VITALS (16 sets, daily range): BP systolic 102–129; BP diastolic 65–81; PULSE 73–105; RESP 17–18; TEMP 97.8–100.5
[2017-08-01] MEDS: SODIUM CHLORIDE 0.9% FLUSH 10 ML FLUSH IV FLUSH SCH ×2 (09:00→21:00)
--- NOTE | 2017-08-01 09:29 | PD.OB.ANTE ---
Subjective Diagnosis: (1) Antepartum cervical shortening Diagnosis: Principal (2) Dichorionic diamniotic twin in third trimester Diagnosis: Principal (3) 30 weeks gestation of Diagnosis: Secondary (4) Cervical incompetence affecting management of in third trimester, antepartum Diagnosis: Principal Interval History Patient seen and examined this morning. She denies any complaints. She reports feeling well. Antepartum ROS: Reports: movement normal, Denies: New complaints, Loss of fluid, Vaginal bleeding, Contractions Objective Vital Signs Vital Signs Date Time Temp Pulse Resp B/P (MAP) Pulse Ox O2 Delivery O2 Flow Rate FiO2 08/01/17 06:38 100.5 08/01/17 06:37 18 08/01/17 06:36 98 113/65 (81) 07/31/17 22:00 98.2 18 07/31/17 21:18 85 117/56 (76) 07/31/17 12:31 98.2 18 07/31/17 12:31 113 118/56 (76) Physical Exam GENERAL: Well-nourished, well-developed patient. CARDIOVASCULAR: Regular rate and rhythm with ii/vi systolic murmur but no gallops or rubs. RESPIRATORY: Breath sounds equal bilaterally. No accessory muscle use. ABDOMEN/GI: Abdomen soft, non-tender. Fundus: c/w twin 30 weeks gestation FHT's: For both twin A and twin B: Category: 1 Baseline: 140s Reactive: +accels Variability: moderate Decels: none EXTREMITIES: No cyanosis or edema, non-tender, without signs of DVT. Assessment and Plan Problem List: (1) Dichorionic diamniotic twin in third trimester ICD Codes: O30.043 - Twin , dichorionic/diamniotic, third trimester Status: Acute (2) 30 weeks gestation of ICD Codes: Z3A.30 - 30 weeks gestation of Status: Acute (3) Cervical incompetence affecting management of in third trimester, antepartum ICD Codes: O34.33 - Maternal care for cervical incompetence, third trimester Status: Acute (4) Antepartum cervical shortening ICD Codes: O26.879 - Cervical shortening, unspecified trimester Status: Acute Assessment and Plan 22 y/o @ 30/3 wks with mariana twins and cervical insufficiency. --Stopped p.o. terbutaline yesterday for anxiety, jitteriness, lack of evidence to support its use. -- FHTs BID strips, both twin A and twin B category 1 -- Contractions last seen on tocometer on 08/01 at 6-7am, currently not diego -- bedrest/T-neves -- SCDs -- regular diet -- Planning on ultrasound tomorrow; discharge pending those results and subsequent discussion d/w Dr. Vicki Prado,Brent Golden MD R2 August 01, 2017 09:29
[2017-08-01] MEDS: FERROUS SULFATE 325 MG (65 MG ELEMENTAL IRON) TAB PO SCH ×2 (09:54→21:50)
[2017-08-01] MEDS: DOCUSATE SODIUM 100 MG CAP PO SCH (09:54)
[2017-08-01] MEDS: LACTATED RINGER'S 1000 ML INJ 1,000 ML IV SCH ×3 (09:54→21:50)
[2017-08-01] MEDS: MULTIVIT/MIN/PREN/FOL AC/IRON PRENATAL TAB PO SCH (09:54)
[2017-08-01] MEDS ORDERED: INDOMETHACIN 50 MG CAP PO ONE (13:00)
[2017-08-01] MEDS: TERBUTALINE SULFATE 5 MG TAB PO SCH ×3 (13:56→21:50)
[2017-08-01] MEDS ORDERED: NIFEdipine 30 MG SUSTAINED RELEASE TAB PO ONE (16:15)
[2017-08-02] VITALS (9 sets, daily range): BP systolic 119–129; BP diastolic 60–70; PULSE 94–109; RESP 18–19; TEMP 98.7–98.8
[2017-08-02] MEDS: TERBUTALINE SULFATE 5 MG TAB PO SCH ×5 (01:59→17:33)
[2017-08-02] MEDS: LACTATED RINGER'S 1000 ML INJ 1,000 ML IV SCH ×3 (05:51→19:43)
[2017-08-02 05:52] LABS: HEMATOCRIT 23.3 % (35.0-46.0); HEMOGLOBIN 7.9 GM/DL (11.6-15.3); MEAN CELL VOLUME 83.9 FL (80.0-100.0); MEAN CORPUSCULAR HEMOGLOBIN 28.4 PG (27.0-34.0); MEAN CORPUSCULAR HGB CONC 33.9 % (32.0-36.0); MEAN PLATELET VOLUME 9.8 FL (7.0-11.0); PLATELET COUNT 190 TH/MM3 (150-450); RED BLOOD COUNT 2.78 MIL/MM3 (4.00-5.30); RED CELL DISTRIBUTION WIDTH 13.7 % (11.6-17.2); WHITE BLOOD COUNT 6.6 TH/MM3 (4.0-11.0)
--- NOTE | 2017-08-02 08:30 | PD.OB.ANTE ---
Subjective Diagnosis: (1) Dichorionic diamniotic twin in third trimester (2) 30 weeks gestation of (3) Cervical incompetence affecting management of in third trimester, antepartum (4) Antepartum cervical shortening (5) labor in second trimester with delivery in third trimester Diagnosis: Principal Interval History 30 week twins with labor after prolonged cervical shortening evaluations , he was admitted 3 days ago and had a cervix that was 2/90/-1, she has been in bed rest since admission and has had contractions on and off since that time she has responded fairly well to oral tocolytics in the form of terbutaline 5 mg every 4 and a 1 time daily dose of Procardia XL 30 mg. Today her cervix is 2 /60/-3 , babies NSTs are reactive Objective Vital Signs Vital Signs Date Time Temp Pulse Resp B/P (MAP) Pulse Ox O2 Delivery O2 Flow Rate FiO2 08/01/17 17:45 97.9 17 08/01/17 17:44 89 129/73 (91) 08/01/17 15:48 73 125/66 (85) 08/01/17 15:47 17 08/01/17 13:11 100 102/81 (88) 08/01/17 13:05 97.8 08/01/17 09:56 98.3 18 08/01/17 09:34 102 123/65 (84) 08/01/17 09:25 105 08/01/17 09:20 100 08/01/17 09:15 101 08/01/17 09:10 103 08/01/17 09:05 94 Lab & Micro Results Test 08/02/17 05:05 White Blood Count 6.6 TH/MM3 Red Blood Count 2.78 MIL/MM3 Hemoglobin 7.9 GM/DL Hematocrit 23.3 % Mean Corpuscular Volume 83.9 FL Mean Corpuscular Hemoglobin 28.4 PG Mean Corpuscular Hemoglobin Concent 33.9 % Red Cell Distribution Width 13.7 % Platelet Count 190 TH/MM3 Mean Platelet Volume 9.8 FL Physical Exam GENERAL: Well-nourished, well-developed patient. CARDIOVASCULAR: Regular rate and rhythm without murmurs, gallops, or rubs. RESPIRATORY: Breath sounds equal bilaterally. No accessory muscle use. ABDOMEN/GI: Abdomen soft, non-tender. Fundus: [-] GENITOURINARY: External Genitalia: intact and normal in appearance Cervix: [-] Dilatation: [-2] Effacement: [60-] Station: [-3] ] Membranes: [Intact-] Uterine Contractions: [irreg /sporadic-] FHT's: Category: [1-] Baseline: [133/135-] Reactive: [R-] Variability: [mod-] Decels: [none-] EXTREMITIES: No cyanosis or edema, non-tender, without signs of DVT. Assessment and Plan Problem List: (1) Dichorionic diamniotic twin in third trimester ICD Codes: O30.043 - Twin , dichorionic/diamniotic, third trimester Status: Acute (2) 30 weeks gestation of ICD Codes: Z3A.30 - 30 weeks gestation of Status: Acute (3) Cervical incompetence affecting management of in third trimester, antepartum ICD Codes: O34.33 - Maternal care for cervical incompetence, third trimester Status: Acute (4) Antepartum cervical shortening ICD Codes: O26.879 - Cervical shortening, unspecified trimester Status: Acute Assessment and Plan 22 y/o @ 30/3 wks with mariana twins and cervical insufficiency PTL. -- FHTs BID strips, both twin A and twin B category 1 -- bedrest/T-neves -- SCDs -- regular diet po terb and procardia check cx US today Lm Appiah II, MD August 02, 2017 08:30
[2017-08-02] MEDS: MULTIVIT/MIN/PREN/FOL AC/IRON PRENATAL TAB PO SCH ×2 (09:00→09:21)
[2017-08-02] MEDS: SODIUM CHLORIDE 0.9% FLUSH 10 ML FLUSH IV FLUSH SCH ×2 (09:00→19:41)
[2017-08-02] MEDS: FERROUS SULFATE 325 MG (65 MG ELEMENTAL IRON) TAB PO SCH ×2 (09:21→19:41)
[2017-08-02] MEDS: NIFEdipine 30 MG SUSTAINED RELEASE TAB PO SCH (09:21)
[2017-08-02] MEDS: DOCUSATE SODIUM 100 MG CAP PO SCH (09:21)
--- NOTE | 2017-08-02 16:29 | HHI.PR ---
HORTICULTURALIST Note Note Discussed in detail with patient her care and the necessity for hospitalization. Given her twin status and her cervical dilatation patient is at high risk for delivery. Patient desires to leave the hospital AGAINST MEDICAL ADVICE. I discussed the need to continue hospitalization and discuss with her the consequences of a delivery at her gestational age which would result in extended stay in the ICU. Despite the possibilities of delivery and the need for extended NICU care I cannot convince this patient to continue hospitalization. Dannielle Macias MD August 02, 2017 16:29
[2017-08-03] VITALS: RESP 14; TEMP 97.8
[2017-08-03 00:03] VITALS: BP 119/59; PULSE 93; RESP 15; TEMP 97.8
[2017-08-03] MEDS: LACTATED RINGER'S 1000 ML INJ 1,000 ML IV SCH (03:46)
[2017-08-03 07:28] VITALS: TEMP 98
[2017-08-03 07:29] VITALS: BP 117/68; PULSE 87
[2017-08-03] MEDS: NIFEdipine 30 MG SUSTAINED RELEASE TAB PO SCH (08:29)
[2017-08-03] MEDS: FERROUS SULFATE 325 MG (65 MG ELEMENTAL IRON) TAB PO SCH (08:29)
[2017-08-03] MEDS: DOCUSATE SODIUM 100 MG CAP PO SCH (09:00)
[2017-08-03] MEDS: SODIUM CHLORIDE 0.9% FLUSH 10 ML FLUSH IV FLUSH SCH (09:00)
[2017-08-03] MEDS: MULTIVIT/MIN/PREN/FOL AC/IRON PRENATAL TAB PO SCH (09:00)
[2017-08-03] MEDS ORDERED: FERR325T20 PO (09:23)
[2017-08-03] MEDS ORDERED: PREN29TA PO (09:23)
[2017-08-03] MEDS ORDERED: NIFE30TA8 PO (09:23)
--- NOTE | 2017-08-03 09:23 | PD.OB.ANTE ---
Subjective Diagnosis: (1) Dichorionic diamniotic twin in third trimester (2) 30 weeks gestation of (3) Cervical incompetence affecting management of in third trimester, antepartum (4) Antepartum cervical shortening (5) labor in second trimester with delivery in third trimester Diagnosis: Principal Interval History Patient doing well this morning Patient threatened to leave AMA twice yesterday PO terbutaline was discontinued Patient still continue procardia 30mg PO daily She still wishes to go home today No other complaints Afebrile VSS Antepartum ROS: Denies: New complaints, Loss of fluid, Vaginal bleeding, movement normal, Contractions, Other Objective Vital Signs Vital Signs Date Time Temp Pulse Resp B/P (MAP) Pulse Ox O2 Delivery O2 Flow Rate FiO2 08/03/17 07:28 98.0 08/03/17 00:03 93 119/59 (79) 08/03/17 00:03 15 08/03/17 00:03 97.8 08/03/17 00:00 97.8 14 08/02/17 20:00 98.7 08/02/17 19:49 18 08/02/17 19:47 94 119/65 (83) 08/02/17 17:31 102 129/70 (89) 08/02/17 17:30 19 08/02/17 12:58 109 125/60 (81) 08/02/17 12:55 98.8 18 Physical Exam GENERAL: Well-nourished, well-developed patient. CARDIOVASCULAR: Regular rate and rhythm without murmurs, gallops, or rubs. RESPIRATORY: Breath sounds equal bilaterally. No accessory muscle use. ABDOMEN/GI: Abdomen soft, non-tender. FHT's: Baby A & B Category: 1 Baseline: 140s Reactive: yes Variability: moderate Decels: none EXTREMITIES: No cyanosis or edema, non-tender, without signs of DVT. Assessment and Plan Problem List: (1) Dichorionic diamniotic twin in third trimester ICD Codes: O30.043 - Twin , dichorionic/diamniotic, third trimester Status: Acute (2) 30 weeks gestation of ICD Codes: Z3A.30 - 30 weeks gestation of Status: Acute (3) Cervical incompetence affecting management of in third trimester, antepartum ICD Codes: O34.33 - Maternal care for cervical incompetence, third trimester Status: Acute (4) Antepartum cervical shortening ICD Codes: O26.879 - Cervical shortening, unspecified trimester Status: Acute (5) labor in second trimester with delivery in third trimester ICD Codes: O60.13X0 - labor second trimester with delivery third trimester, not applicable or unspecified Assessment and Plan 22 y/o @ 30/5 wks with mariana twins and cervical insufficiency PTL. -- FHTs BID strips, both twin A and twin B category 1 -- bedrest/T-neves -- SCDs -- regular diet po terb discontinued Continue PO Procardia XL 30mg PO daily US 08/02 revealed Twin A and Twin B, normal amniotic fluid and BPP 11/03, Transvaginal cervical length relatively stable from US measuring short at 11mm. -Patient stable to discharge home today, patient will be sent home on Procardia XL 30mg PO daily until 34 weeks and strict bed rest -Follow-up closely with OB provider dw Dr. Macias and Latia Gallegos MD R1 August 03, 2017 09:23
--- NOTE | 2017-08-03 09:25 | HHI.DCPOC ---
Discharge Care Plan Diagnosis: (1) Dichorionic diamniotic twin in third trimester (2) 30 weeks gestation of (3) Cervical incompetence affecting management of in third trimester, antepartum Report Symptoms to Your Doctor -Temperature above 100.5 degrees -Redness, of incision or excessive or foul smelling drainage -Unusual pain or calf pain -Increased vaginal bleeding -Painful or difficulty urinating -Feelings of extreme sadness or anxiety after 2 weeks Goals to Promote Your Health * To prevent worsening of your condition and complications, and to maintain your health at the optimal level continue to take all of your medications as prescribed and follow up with your OB provider within 3-5 days after hospital discharge. Directions to Meet Your Goals Take your medications as prescribed Follow your dietary instruction Follow activity as directed Ensure plenty of rest for recovery Drink fluids for hydration Keep your appointments as scheduled Take your immunizations and boosters as scheduled If your symptoms worsen call your PCP, if no PCP go to Urgent Care Center or Emergency Room Smoking is Dangerous to Your Health. Avoid second hand smoke Call the 24-hour crisis hotline for domestic abuse at Kody Wong MD R2 August 03, 2017 09:25
== END 2017-08-03 10:22 | disposition home or self-care (01) | DRG 781 ==
LOC: HOBED 17:39 → H2EB 18:07
PROVIDERS: ADMIT Obstetrics & Gynecology; ATTEND Obstetrics & Gynecology
DX: O34.33 Maternal care for cervical incompetence, third trimester (principal); O99.343 Other mental disorders complicating pregnancy, third trimester; O60.03 Preterm labor without delivery, third trimester; O30.043 Twin pregnancy, dichorionic/diamniotic, third trimester; F41.9 Anxiety disorder, unspecified; Z3A.30 30 weeks gestation of pregnancy
CPT/HCPCS: 76815; 76817; 85027; 86850; 86900; 86901; 99283; 99285; G0378; J3010; J3105; J7120

== ENCOUNTER 2017-08-11 09:02 | Inpatient (IN) | payer OTHER ==
[~2017-08-11] VITALS: Ht 160 cm; Wt 65.0 kg
[2017-08-11] VITALS (144 sets, daily range): BP systolic 114–134; BP diastolic 57–83; PULSE 65–105; RESP 16–18; TEMP 98
[~2017-08-11 09:02] MED LIST changes: -IBUP1TAB7 PO; -NIFE1TAB85 PO; -PERI PO
[2017-08-11] MEDS ORDERED: MAGNESIUM SULFATE 4 GM PREMIX 100 ML IV ONE (10:00)
[2017-08-11] MEDS ORDERED: CALCIUM GLUCONATE 10% 1 GM/10 ML VIAL IV PUSH PRN (10:00)
[2017-08-11] MEDS ORDERED: SODIUM CHLORIDE 0.9% FLUSH 10 ML FLUSH IV FLUSH PRN (10:00)
[2017-08-11] MEDS: SODIUM CHLORIDE 0.9% FLUSH 10 ML FLUSH IV FLUSH SCH ×2 (10:00→21:00)
--- NOTE | 2017-08-11 10:22 | PD ---
HPI Chief Complaint Contractions Date Seen: August 11, 2017 Travel History International Travel<30 Days: No Contact w/Intl Traveler<30Days: No Known Affected Area: No History of Present Illness HPI The patient is a 22-year-old at 31/6 weeks gestation being evaluated due to contractions. The patient was recently admitted here following having contractions and noted to have a short cervix. Cervical length on 07/21 was 0.9 cm. She was admitted here from 07/29 until 08/03 and was discharged on Procardia XL 30 mg po daily after her contractions resolved. Patient was seen at OB diagnostics earlier this morning and was noted to have contractions and was sent to OB triage for further evaluation. She reports her contractions started yesterday morning. She endorses these contractions to be fairly irregular and have not been intensifying in nature. She denies any leakage or gush of fluid. Endorses positive movements of both twins. She states she has been compliant taking her p.o. Procardia at home as well as being on bedrest. She otherwise denies any specific complaints or concerns. Para: 0 : 1 History Past Medical History Medical History: Denies Significant Hx Obstetric History Obstetric History Past Surgical History Surgical History: No Previous Surgery Family History Family History: Negative Social History Alcohol Use: No Tobacco Use: No Substance Abuse: No Allergies-Medications (Allergen,Severity, Reaction): Coded Allergies: No Known Allergies (Unverified Adverse Reaction, Unknown, 07/29/17) Home Meds Active Scripts Nifedipine ER 24 HR (Nifedipine ER 24 HR) 30 Mg Tab, 30 MG PO DAILY, #28 TAB Prov:Kody Wong MD R2 08/03/17 Vit-Iron Carbonyl ( Plus Iron 29-1 mg) 29 Mg Iron-1 Mg Tab, 1 TAB PO DAILY, #30 TAB Prov:Kody Wong MD R2 08/03/17 Ferrous Sulfate (Ferosul) 325 Mg (65 Mg Iron) Tablet, 325 MG PO BID, #60 TAB Prov:Kody Wong MD R2 08/03/17 Reported Medications Calcium Carbonate (Antacid) (Tums) 500 Mg Chew, 500 MG CHEW Y for HEARTBURN, TAB 0 Refills 07/29/17 Review of Systems Except as stated in HPI: all other systems reviewed are Neg Physical Exam Narrative GENERAL: Well-nourished, well-developed patient. SKIN: Warm and dry. HEAD: Normocephalic and atraumatic. EYES: No scleral icterus. No injection or drainage. ENT: No nasal drainage noted. Mucous membranes pink. Airway patent. NECK: Supple, trachea midline. No JVD. CARDIOVASCULAR: Regular rate and rhythm without murmurs, gallops, or rubs. RESPIRATORY: Breath sounds equal bilaterally. No accessory muscle use. ABDOMEN/GI: Abdomen soft, non-tender, bowel sounds present, no rebound, no guarding Gravid to [-] weeks size GENITOURINARY: External Genitalia: intact and normal in appearance Cervix: midposition Dilatation: 3-4cm Effacement: 90% Station: -2 Presentation: [-] Membranes: intact Uterine Contractions: q2-5 minutes on tocometer FHT's Twin A: Category: I Baseline: 130s Reactive: +accels Variability: moderate Decels: none noted FHT's twin B: Category: I Baseline: 130s Reactive: +accels Variability: moderate Decels: none noted EXTREMITIES: No cyanosis or edema. BACK: Nontender without obvious deformity. No CVA tenderness. NEUROLOGICAL: Awake and alert. Motor and sensory grossly within normal limits. Normal speech. Data Data Vital Signs Reviewed: Yes Orders Orders Admit To Inpatient (08/11/17 ) Code Status (08/11/17 09:53) Vital Signs (Adult) Q5MX4,Q15MX4,Q30MX2,Q1H (08/11/17 09:53) Activity Bed Rest (08/11/17 09:53) Intake + Output Q1H (08/11/17 09:53) Notify Dr. Rushing (08/11/17 09:53) Heart CONTINUOUS (08/11/17 09:53) Urinary Catheter Management KATIANA.Q8H (08/11/17 09:53) ^ Check Deep Tendon Reflexes Q1H (08/11/17 09:53) Diet Npo (08/11/17 Breakfast) Lactated Ringer's 1000 Ml Inj (Lr 1000 M (08/11/17 09:53) Sodium Chloride 0.9% Flush (Ns Flush) (08/11/17 10:00) Sodium Chloride 0.9% Flush (Ns Flush) (08/11/17 10:00) Magnesium Sulfate 40 Gm Premix (Magnesiu (08/11/17 09:53) Calcium Gluconate Inj (Calcium Gluconate (08/11/17 10:00) Magnesium Sulfate 4 Gm Premix (Magnesium (08/11/17 10:00) Intake + Output KATIANA.QSHIFT (08/11/17 09:53) Heart CONTINUOUS (08/11/17 09:53) Betamethasone Inj (Celestone Soluspan In (08/11/17 10:00) Inpatient Certification (08/11/17 ) [facility] Medical Record Reviewed: Yes Plan 22 year old at 31/6 weeks gestation being evaluated due to persistent contractions. 1. Di/di twin gestation - Discussed with OB diagnostics regarding lie, Twin A is vertex with Twin B lying back up transverse lie - Cervix 3-90/-2 - Will start patient on magnesium sulfate per protocol due to contractions - Stop home procardia - Start rescue series of steroids today, betamethasone first dose given 08/11 anticipate 2nd dose after 24 hours - Category I tracings at this time sunithaw Kody Rodarte MD R2 August 11, 2017 10:21
--- NOTE | 2017-08-11 10:37 | HHI.HP ---
History & Physical H&P HPI HPI Chief Complaint Contractions Date Seen: August 11, 2017 Travel History International Travel<30 Days: No Contact w/Intl Traveler<30Days: No Known Affected Area: No History of Present Illness HPI The patient is a 22-year-old at 31/6 weeks gestation being evaluated due to contractions. The patient was recently admitted here following having contractions and noted to have a short cervix. Cervical length on 07/21 was 0.9 cm. She was admitted here from 07/29 until 08/03 and was discharged on Procardia XL 30 mg po daily after her contractions resolved. Patient was seen at OB diagnostics earlier this morning and was noted to have contractions and was sent to OB triage for further evaluation. She reports her contractions started yesterday morning. She endorses these contractions to be fairly irregular and have not been intensifying in nature. She denies any leakage or gush of fluid. Endorses positive movements of both twins. She states she has been compliant taking her p.o. Procardia at home as well as being on bedrest. She otherwise denies any specific complaints or concerns. Para: 0 : 1 History (Limited) History Past Medical History Medical History: Denies Significant Hx Obstetric History Obstetric History Past Surgical History Surgical History: No Previous Surgery Family History Family History: Negative Social History Alcohol Use: No Tobacco Use: No Substance Abuse: No Allergies-Medications Allergies-Medications (Allergen,Severity, Reaction): Coded Allergies: No Known Allergies (Unverified Adverse Reaction, Unknown, 07/29/17) Home Meds Active Scripts Nifedipine ER 24 HR (Nifedipine ER 24 HR) 30 Mg Tab, 30 MG PO DAILY, #28 TAB Prov:Kody Wong MD R2 08/03/17 Vit-Iron Carbonyl ( Plus Iron 29-1 mg) 29 Mg Iron-1 Mg Tab, 1 TAB PO DAILY, #30 TAB Prov:Kody Wong MD R2 08/03/17 Ferrous Sulfate (Ferosul) 325 Mg (65 Mg Iron) Tablet, 325 MG PO BID, #60 TAB Prov:Kody Wong MD R2 08/03/17 Reported Medications Calcium Carbonate (Antacid) (Tums) 500 Mg Chew, 500 MG CHEW Y for HEARTBURN, TAB 0 Refills 07/29/17 ROS Review of Systems Except as stated in HPI: all other systems reviewed are Neg Physical Exam Physical Exam Narrative GENERAL: Well-nourished, well-developed patient. SKIN: Warm and dry. HEAD: Normocephalic and atraumatic. EYES: No scleral icterus. No injection or drainage. ENT: No nasal drainage noted. Mucous membranes pink. Airway patent. NECK: Supple, trachea midline. No JVD. CARDIOVASCULAR: Regular rate and rhythm without murmurs, gallops, or rubs. RESPIRATORY: Breath sounds equal bilaterally. No accessory muscle use. ABDOMEN/GI: Abdomen soft, non-tender, bowel sounds present, no rebound, no guarding Gravid to [-] weeks size GENITOURINARY: External Genitalia: intact and normal in appearance Cervix: midposition Dilatation: 3-4cm Effacement: 90% Station: -2 Presentation: [-] Membranes: intact Uterine Contractions: q2-5 minutes on tocometer FHT's Twin A: Category: I Baseline: 130s Reactive: +accels Variability: moderate Decels: none noted FHT's twin B: Category: I Baseline: 130s Reactive: +accels Variability: moderate Decels: none noted EXTREMITIES: No cyanosis or edema. BACK: Nontender without obvious deformity. No CVA tenderness. NEUROLOGICAL: Awake and alert. Motor and sensory grossly within normal limits. Normal speech. Data Data Data Vital Signs Reviewed: Yes Orders Orders Admit To Inpatient (08/11/17 ) Code Status (08/11/17 09:53) Vital Signs (Adult) Q5MX4,Q15MX4,Q30MX2,Q1H (08/11/17 09:53) Activity Bed Rest (08/11/17 09:53) Intake + Output Q1H (08/11/17 09:53) Notify Parameters (08/11/17 09:53) Heart CONTINUOUS (08/11/17 09:53) Urinary Catheter Management KATIANA.Q8H (08/11/17 09:53) ^ Check Deep Tendon Reflexes Q1H (08/11/17 09:53) Diet Npo (08/11/17 Breakfast) Lactated Ringer's 1000 Ml Inj (Lr 1000 M (08/11/17 09:53) Sodium Chloride 0.9% Flush (Ns Flush) (08/11/17 10:00) Sodium Chloride 0.9% Flush (Ns Flush) (08/11/17 10:00) Magnesium Sulfate 40 Gm Premix (Magnesiu (08/11/17 09:53) Calcium Gluconate Inj (Calcium Gluconate (08/11/17 10:00) Magnesium Sulfate 4 Gm Premix (Magnesium (08/11/17 10:00) Intake + Output KATIANA.QSHIFT (08/11/17 09:53) Heart CONTINUOUS (08/11/17 09:53) Betamethasone Inj (Celestone Soluspan In (08/11/17 10:00) Inpatient Certification (08/11/17 ) MDM MDM Medical Record Reviewed: Yes Plan 22 year old at 31/6 weeks gestation being evaluated due to persistent contractions. 1. Di/di twin gestation - Discussed with OB diagnostics regarding lie, Twin A is vertex with Twin B lying back up transverse lie - Cervix 3-4/90/-2 - Will start patient on magnesium sulfate per protocol due to contractions - Stop home procardia - Start rescue series of steroids today, betamethasone first dose given 08/11 anticipate 2nd dose after 24 hours - Category I tracings at this time sdw Kody Rodarte MD R2 August 11, 2017 10:37
[2017-08-11] MEDS: BETAMETHASONE SOD PHOS/ACETATE SUSP 30 MG/5 ML VIAL IM SCH (10:38)
[2017-08-11] MEDS: LACTATED RINGER'S 1000 ML INJ 1,000 ML IV SCH ×2 (10:40→23:22)
[2017-08-11] MEDS: MAGNESIUM SULFATE 40 GM PREMIX 1,000 ML IV SCH (10:44)
[2017-08-11 11:07] LABS: AUTOMATED NEUTROPHIL # 5.2 TH/MM3 (1.8-7.7); BASOPHIL % 0.5 % (0.0-2.0); EOSINOPHIL # 0.1 TH/MM3 (0-0.4); EOSINOPHIL % 0.8 % (0.0-4.0); HEMOGLOBIN 11.1 GM/DL (11.6-15.3); LYMPH % 18.1 % (9.0-44.0); LYMPHOCYTE # 1.4 TH/MM3 (1.0-4.8); MEAN CELL VOLUME 84.2 FL (80.0-100.0); MEAN CORPUSCULAR HEMOGLOBIN 28.3 PG (27.0-34.0); MEAN CORPUSCULAR HGB CONC 33.6 % (32.0-36.0); MEAN PLATELET VOLUME 10.6 FL (7.0-11.0); MONO % 12.7 % (0.0-8.0); NEUT % 67.9 % (16.0-70.0); PLATELET COUNT 265 TH/MM3 (150-450); RED BLOOD COUNT 3.92 MIL/MM3 (4.00-5.30); RED CELL DISTRIBUTION WIDTH 14.8 % (11.6-17.2); WHITE BLOOD COUNT 7.6 TH/MM3 (4.0-11.0)
--- NOTE | 2017-08-11 13:09 | HHI.PR ---
Subjective Remarks OB Attending 22y/o G1Po, twin IUP at 31.6 who was readmitted for labor and started on magnesium sulfate for labor and neuroprotection. MFM recommended a rescue dose of steroids. Dr. Olvera also recommended if patient still diego frequently to administer the second dose of betamethasone after 12 hours. Spoke with patient after assuming care and discussed delivery if prelabor progresses. Discussed the risks, benefits, alternatives of , as well as the risks, benefits, and alternatives to delivery. We discussed that with a vaginal delivery the patient may require emergent delivery to deliver the second twin as well as a risk of injury to the second twin with internal version maneuvers at delivery. The risks of delivery include but are not limited to pain, infection, bleeding, injury to other organs like the bladder/bowel/nerves/vessels, injury to the baby, need for repeat operation, need for hysterectomy, need for blood transfusion, wound infection/breakdown, and other possible complications. All of the patient's questions were answered and consent has already been signed. The patient has already received her 4 g bolus and is being maintained on 2 g of magnesium sulfate per hour and has already received her first dose of her rescue course of betamethasone. heart tones appeared to be reassuring at this time. Will monitor closely. Objective Vital Signs Date Time Temp Pulse Resp B/P (MAP) Pulse Ox O2 Delivery O2 Flow Rate FiO2 08/11/17 13:00 79 124/71 (88) 08/11/17 13:00 91 08/11/17 12:55 74 08/11/17 12:50 72 08/11/17 12:45 79 08/11/17 12:40 70 08/11/17 12:35 72 08/11/17 12:30 72 128/74 (92) 08/11/17 12:30 67 08/11/17 12:25 72 08/11/17 12:20 73 08/11/17 12:15 74 08/11/17 12:10 70 08/11/17 12:00 65 08/11/17 12:00 123/69 (87) 08/11/17 11:35 68 08/11/17 11:30 75 08/11/17 11:30 79 129/75 (93) 08/11/17 11:25 75 08/11/17 11:20 75 08/11/17 11:15 67 08/11/17 11:10 81 125/70 (88) 08/11/17 11:10 77 08/11/17 11:05 81 08/11/17 11:05 80 125/68 (87) 08/11/17 11:00 85 119/63 (81) 08/11/17 11:00 81 08/11/17 10:55 73 08/11/17 10:55 126/65 (85) 08/11/17 10:52 16 08/11/17 10:50 75 125/70 (88) 08/11/17 10:50 79 08/11/17 10:45 70 125/77 (93) Result Diagram: 08/11/17 1030 Marcela Cohen MD August 11, 2017 13:09
--- NOTE | 2017-08-11 13:55 | HHI.PR ---
Subjective Remarks OB Attending Went to check patient due to continued contractions. FHR reassuring. SVE 3-4/ 90/-1 during contraction. Continue magnesium sulfate, monitoring, will perform C/S if patient starts to make cervical change. Objective Vital Signs Date Time Temp Pulse Resp B/P (MAP) Pulse Ox O2 Delivery O2 Flow Rate FiO2 08/11/17 13:30 79 08/11/17 13:05 75 08/11/17 13:00 79 124/71 (88) 08/11/17 13:00 91 08/11/17 12:55 74 08/11/17 12:50 72 08/11/17 12:45 79 08/11/17 12:40 70 08/11/17 12:35 72 08/11/17 12:30 72 128/74 (92) 08/11/17 12:30 67 08/11/17 12:25 72 08/11/17 12:20 73 08/11/17 12:15 74 08/11/17 12:10 70 08/11/17 12:00 65 08/11/17 12:00 123/69 (87) 08/11/17 11:35 68 08/11/17 11:30 75 08/11/17 11:30 79 129/75 (93) 08/11/17 11:25 75 08/11/17 11:20 75 08/11/17 11:15 67 08/11/17 11:10 81 125/70 (88) 08/11/17 11:10 77 08/11/17 11:05 81 08/11/17 11:05 80 125/68 (87) 08/11/17 11:00 85 119/63 (81) 08/11/17 11:00 81 08/11/17 10:55 73 08/11/17 10:55 126/65 (85) 08/11/17 10:52 16 08/11/17 10:50 75 125/70 (88) 08/11/17 10:50 79 08/11/17 10:45 70 125/77 (93) Result Diagram: 08/11/17 1030 Marcela Cohen MD August 11, 2017 13:55
[2017-08-11] MEDS ORDERED: PROMETHAZINE INJ 25 MG/ML VIAL IM PRN (19:45)
[2017-08-11] MEDS ORDERED: ONDANSETRON HCL 4 MG/2 ML VIAL ONE (20:02)
[2017-08-11 20:08] LABS: BILIRUBIN, URINE NEG (NEG); BLOOD, URINE NEG (NEG); GLUCOSE,URINE NEG (NEG); HYALINE CAST, URINE 2 /lpf (RARE); KETONE, URINE 40 mg/dL (NEG); NITRITE,URINE NEG (NEG); URINE COLOR LIGHT-YELLOW (YELLW/STRAW); URINE LEUKOCYTE ESTERASE NEG (NEG)
[2017-08-12] VITALS (37 sets, daily range): BP systolic 82–133; BP diastolic 59–78; PULSE 68–106; RESP 16–18; TEMP 97.6–98.1
[2017-08-12] MEDS: MAGNESIUM SULFATE 40 GM PREMIX 1,000 ML IV SCH (06:30)
--- NOTE | 2017-08-12 08:40 | HHI.PR ---
Subjective Remarks Patient seen and examined at bedside this am. Pt reported she had N/V overnight that has now resolved. Pt reports she feels tired. Denies LOF, vaginal bleeding or contractions. Endorses movement. Objective Vital Signs Date Time Temp Pulse Resp B/P (MAP) Pulse Ox O2 Delivery O2 Flow Rate FiO2 08/12/17 07:57 97.7 08/12/17 07:00 106 103/59 (74) 08/12/17 06:00 18 08/12/17 05:00 81 129/66 (87) 08/12/17 05:00 18 08/12/17 04:00 97 133/76 (95) 08/12/17 03:00 76 125/68 (87) 08/12/17 03:00 18 08/12/17 02:25 81 08/12/17 02:20 88 08/12/17 02:15 81 08/12/17 02:10 88 08/12/17 02:05 84 08/12/17 02:00 84 125/73 (90) 08/12/17 02:00 18 08/12/17 01:55 78 08/12/17 01:50 84 08/12/17 01:45 81 08/12/17 01:40 83 08/12/17 01:35 83 08/12/17 01:30 90 08/12/17 01:25 83 08/12/17 01:20 85 08/12/17 01:15 81 08/12/17 01:10 83 08/12/17 01:05 81 08/12/17 01:00 84 82/61 (68) 08/12/17 01:00 16 08/12/17 01:00 85 08/12/17 00:55 83 08/12/17 00:50 79 08/12/17 00:45 85 08/12/17 00:40 85 08/12/17 00:30 79 08/12/17 00:25 83 08/12/17 00:20 86 08/12/17 00:15 77 08/12/17 00:10 85 08/12/17 00:05 82 08/12/17 00:00 97.6 08/12/17 00:00 122/78 (93) 08/12/17 00:00 16 08/12/17 00:00 94 5/16/18 23:55 96 08/11/17 23:50 75 18 23:45 75 18 23:40 88 18 23:35 77 08/11/17 23:30 83 18 23:25 84 18 23:20 87 08/11/17 23:15 88 08/11/17 23:10 84 08/11/17 23:05 86 08/11/17 23:00 90 122/74 (90) 08/11/17 23:00 89 08/11/17 23:00 16 08/11/17 22:55 101 08/11/17 22:50 105 08/11/17 22:45 79 08/11/17 22:40 85 08/11/17 22:35 90 08/11/17 22:30 83 08/11/17 22:25 85 08/11/17 22:20 84 08/11/17 22:15 104 08/11/17 22:10 89 127/64 (85) 08/11/17 22:10 85 08/11/17 22:05 84 08/11/17 22:00 83 08/11/17 21:55 86 08/11/17 21:50 84 08/11/17 21:45 97 08/11/17 21:40 83 08/11/17 21:35 84 08/11/17 21:30 95 08/11/17 21:25 92 08/11/17 21:20 77 08/11/17 21:15 88 08/11/17 21:10 91 08/11/17 21:05 86 08/11/17 21:00 73 16 132/83 (99) 08/11/17 21:00 88 08/11/17 20:55 92 18 20:50 81 18 20:45 81 08/11/17 20:40 88 08/11/17 20:35 92 08/11/17 20:30 79 18 20:25 80 18 20:20 93 08/11/17 20:15 86 08/11/17 20:10 87 08/11/17 20:05 82 08/11/17 20:00 16 08/11/17 20:00 98 130/79 (96) 5/16/18 20:00 101 16/18 19:55 100 5/16/18 19:50 82 5/16/18 19:45 93 5/16/18 19:40 82 516/18 19:39 98.0 16/18 19:35 90 16/18 19:30 91 16/18 19:25 95 16/18 19:20 95 16/18 19:15 86 1618 19:10 89 1618 19:05 93 16/18 19:00 95 16/18 19:00 16 132/68 (89) 1618 19:00 96 16/18 18:55 95 16/18 18:50 95 1618 18:45 97 16/18 18:40 91 1618 18:35 93 16/18 18:30 86 16/18 18:25 90 1618 18:20 88 1618 18:15 91 16/18 18:10 84 16/18 18:05 100 16/18 18:00 90 16/18 18:00 92 134/61 (85) 16/18 17:55 89 16/18 17:50 85 16/18 17:45 81 16/18 17:40 86 16/18 17:35 83 16/18 17:30 84 16/18 17:25 87 16/18 17:20 89 16/18 17:15 87 16/18 17:10 93 16/18 17:05 95 16/18 17:00 92 16/18 17:00 92 16 114/57 (76) 16/18 16:40 84 /16/18 16:35 86 /16/18 16:30 79 5/16/18 16:30 118/65 (82) 16/18 16:25 79 /16/18 16:20 84 16/18 16:15 83 16/18 16:10 89 16/18 16:05 79 16/18 16:00 16 5/16/18 16:00 82 123/73 (90) 08/11/17 15:30 100 125/68 (87) 08/11/17 15:30 86 1618 15:25 88 18 15:20 83 1618 15:15 85 1618 15:10 80 1618 15:05 92 1618 15:00 83 128/75 (92) 08/11/17 15:00 17 08/11/17 14:55 85 08/11/17 14:50 78 1618 14:45 93 08/11/17 14:40 78 18 14:35 88 08/11/17 14:30 83 130/71 (90) 08/11/17 14:25 77 08/11/17 14:20 80 08/11/17 14:15 77 08/11/17 14:10 78 08/11/17 14:05 84 08/11/17 14:00 18 08/11/17 14:00 77 127/74 (91) 08/11/17 14:00 77 08/11/17 13:35 81 08/11/17 13:30 79 1618 13:30 130/68 (88) 08/11/17 13:25 74 18 13:20 78 08/11/17 13:15 85 08/11/17 13:10 73 16 13:05 75 08/11/17 13:00 79 124/71 (88) 08/11/17 13:00 17 08/11/17 13:00 91 08/11/17 12:55 74 18 12:50 72 1618 12:45 79 1618 12:40 70 1618 12:35 72 16/18 12:30 72 128/74 (92) 08/11/17 12:30 67 08/11/17 12:25 72 1618 12:20 73 1618 12:15 74 1618 12:10 70 1618 12:00 65 1618 12:00 123/69 (87) 08/11/17 12:00 17 08/11/17 11:35 68 5/16/18 11:30 75 08/11/17 11:30 79 129/75 (93) 08/11/17 11:25 75 08/11/17 11:20 75 08/11/17 11:15 67 08/11/17 11:10 81 125/70 (88) 08/11/17 11:10 77 08/11/17 11:05 81 08/11/17 11:05 80 125/68 (87) 08/11/17 11:00 85 119/63 (81) 08/11/17 11:00 81 08/11/17 10:55 73 08/11/17 10:55 126/65 (85) 08/11/17 10:52 16 08/11/17 10:50 75 125/70 (88) 08/11/17 10:50 79 08/11/17 10:45 70 125/77 (93) Result Diagram: 08/11/17 1030 Objective Remarks GENERAL: Well-nourished, well-developed patient Female laying in bed CARDIOVASCULAR: Regular rate and rhythm without murmurs, gallops, or rubs. RESPIRATORY: Breath sounds equal bilaterally. No accessory muscle use. ABD: gravid, soft, non-tender EXTREMITIES: No cyanosis or edema, non-tender, without signs of DVT. FHT's Twin A: Category: I Baseline: 110s Reactive: +accels Variability: moderate Decels: none noted FHT's twin B: Category: I Baseline: 120s Reactive: +accels Variability: moderate Decels: none noted Assessment and Plan Problem List: (1) 32 weeks gestation of ICD Codes: Z3A.32 - 32 weeks gestation of Plan: 22 yo F at 32 weeks gestation with di/di twin gestation admitted due to persistent contractions -Patient received first dose of steroids yesterday 08/11, due for second dose today 08/12 -Pt has been on mag sulfate IV -continue to monitor VS and monitoring -category 1 tracing - no contractions noted on monitor DW Dr. Cohen Discussed Condition With Aubrey Nichols Dr., MD, R1 August 12, 2017 08:40
[2017-08-12] MEDS: SODIUM CHLORIDE 0.9% FLUSH 10 ML FLUSH IV FLUSH SCH ×2 (09:00→20:30)
[2017-08-12] MEDS: BETAMETHASONE SOD PHOS/ACETATE SUSP 30 MG/5 ML VIAL IM SCH (10:30)
[2017-08-12] MEDS: LACTATED RINGER'S 1000 ML INJ 1,000 ML IV SCH (12:06)
[2017-08-13 04:00] VITALS: TEMP 97.8
[2017-08-13 08:12] VITALS: BP 119/63; PULSE 75; RESP 18; TEMP 97.5
--- NOTE | 2017-08-13 08:54 | PD.OB.ANTE ---
Subjective Antepartum ROS: Reports: Vaginal bleeding (light bleeding x2 noted overnight when pt wiped), movement normal, Contractions, Denies: Loss of fluid Objective Vital Signs Vital Signs Date Time Temp Pulse Resp B/P (MAP) Pulse Ox O2 Delivery O2 Flow Rate FiO2 08/13/17 08:12 97.5 75 18 119/63 (81) 08/13/17 04:00 97.8 08/12/17 23:31 68 129/65 (86) 08/12/17 21:00 98.1 18 Physical Exam GENERAL: Well-nourished, well-developed patient. CARDIOVASCULAR: Regular rate and rhythm without murmurs, gallops, or rubs. RESPIRATORY: Breath sounds equal bilaterally. No accessory muscle use. ABDOMEN/GI: Abdomen soft, non-tender. Fundus: 32 weeks gestation GENITOURINARY: External Genitalia: intact and normal in appearance Membranes: intact Uterine Contractions: 13 contractions w/in, max 3 contraction with 10mins period FHT's: Twin A Category: 1 Baseline: 130 Reactive: yes Variability:moderate Decels: none Twin B Category: 1 Baseline: 130 Reactive: yes Variability:moderate Decels: none EXTREMITIES: No cyanosis or edema, non-tender, without signs of DVT. Assessment and Plan Problem List: (1) 32 weeks gestation of ICD Codes: Z3A.32 - 32 weeks gestation of Plan: 22 yo F at 32/1 weeks gestation with di/di twin gestation admitted due to persistent contractions -Patient received steroids x2 - mag sulfate IV discontinued yesterday -category 1 tracing -pt with c/o contractions this am, max 3 contraction within 10mins period -continue to monitor VS and monitoring wdw Ob hospitalist Aubrey Mckeon MD, R1 August 13, 2017 08:54
[2017-08-13 11:51] VITALS: RESP 16; TEMP 98
--- NOTE | 2017-08-13 15:18 | HHI.DCPOC ---
Discharge Care Plan Diagnosis: (1) Antepartum cervical shortening (2) 32 weeks gestation of Report Symptoms to Your Doctor -Temperature above 100.5 degrees -Redness, of incision or excessive or foul smelling drainage -Unusual pain or calf pain -Increased vaginal bleeding -Painful or difficulty urinating -Feelings of extreme sadness or anxiety after 2 weeks Goals to Promote Your Health * To prevent worsening of your condition and complications, take all of your medications as prescribed and continue routine follow-up with your OB provider as an outpatient. Directions to Meet Your Goals Take your medications as prescribed Follow your dietary instruction Follow activity as directed Ensure plenty of rest for recovery Drink fluids for hydration Keep your appointments as scheduled Take your immunizations and boosters as scheduled If your symptoms worsen call your PCP, if no PCP go to Urgent Care Center or Emergency Room Smoking is Dangerous to Your Health. Avoid second hand smoke Call the 24-hour crisis hotline for domestic abuse at Kody Wong MD R2 August 13, 2017 15:18
--- NOTE | 2017-08-13 15:22 | HHI.DS ---
Discharge Summary Admission Date August 11, 2017 Discharge Date: August 13, 2017 Admitting Diagnosis (1) 32 weeks gestation of Diagnosis: Principal ICD Codes: Z3A.32 - 32 weeks gestation of (2) Threatened labor Diagnosis: Principal ICD Codes: O47.00 - False labor before 37 completed weeks of gestation, unspecified trimester CBC/BMP: 08/11/17 1030 Significant Findings Laboratory Tests Test 08/11/17 10:30 08/11/17 18:30 Red Blood Count 3.92 MIL/MM3 (4.00-5.30) Hemoglobin 11.1 GM/DL (11.6-15.3) Hematocrit 33.0 % (35.0-46.0) Monocytes (%) (Auto) 12.7 % (0.0-8.0) Monocytes # (Auto) 1.0 TH/MM3 (0-0.9) Urine Ketones 40 mg/dL (NEG) PE at Discharge GENERAL: Well-nourished, well-developed patient. CARDIOVASCULAR: Regular rate and rhythm without murmurs, gallops, or rubs. RESPIRATORY: Breath sounds equal bilaterally. No accessory muscle use. ABDOMEN/GI: Abdomen soft, non-tender. Fundus: 32 weeks gestation GENITOURINARY: External Genitalia: intact and normal in appearance Membranes: intact Uterine Contractions: 13 contractions w/in, max 3 contraction with 10mins period FHT's: Twin A Category: 1 Baseline: 130 Reactive: yes Variability:moderate Decels: none Twin B Category: 1 Baseline: 130 Reactive: yes Variability:moderate Decels: none EXTREMITIES: No cyanosis or edema, non-tender, without signs of DVT. Transfer Summary is a 22-year-old at 32/1 weeks gestation with di/di twin that was admitted for evaluation due to persistent contractions on . During hospital course. Patient received steroids x2 and IV mag sulfate x 24hrs. Patient has not made any cervical change, has not complaints and tracing for was reassuring. Pt was found not to be in active labor and stable to be discharge with close f/u with her [facility]NA[facility] OUTPATIENT doctor. Pt was hemodynamically stable upon discharge. Hospital Course GENERAL: Well-nourished, well-developed patient. CARDIOVASCULAR: Regular rate and rhythm without murmurs, gallops, or rubs. RESPIRATORY: Breath sounds equal bilaterally. No accessory muscle use. ABDOMEN/GI: Abdomen soft, non-tender. Fundus: 32 weeks gestation GENITOURINARY: External Genitalia: intact and normal in appearance Membranes: intact Pt Condition on Discharge: Stable Discharge Disposition: Discharge Home Discharge Instructions DIET: Follow Instructions for: As Tolerated, No Restrictions Activities you can perform: Pelvic Rest, Continue Bedrest Follow up Referrals: [facility]NA[facility] OUTPAT[facility] - 3-5 Days Continued Medications: Ferrous Sulfate (Ferosul) 325 Mg (65 Mg Iron) Tablet 325 MG PO BID, #60 TAB Nifedipine ER 24 HR (Nifedipine ER 24 HR) 30 Mg Tab 30 MG PO DAILY, #28 TAB Aubrey Mckeon MD, R1 August 13, 2017 15:22
== END 2017-08-13 16:26 | disposition home or self-care (01) | DRG 780 ==
LOC: HOBED 09:02 → OBSVTOIN 10:10 → H2EA 10:10 → INTOOBSV 10:10 → OBSVTOIN 08-12 07:34
PROVIDERS: ADMIT Obstetrics & Gynecology; ATTEND Obstetrics & Gynecology
DX: O47.03 False labor before 37 completed weeks of gestation, third trimester (principal); O26.873 Cervical shortening, third trimester; O32.2XX2 Maternal care for transverse and oblique lie, fetus 2; O30.043 Twin pregnancy, dichorionic/diamniotic, third trimester; Z3A.31 31 weeks gestation of pregnancy
CPT/HCPCS: 76816; 76818; 76819; 76820; 76821; 80307; 81001; 84112; 85025; 96361; 96365; 96372; 96375; G0378; G0481; J0702; J2405; J3475; J7120

== ENCOUNTER → 2017-08-11 | Outpatient (CLI) | payer OTHER ==
[~2017-08-11] MED LIST changes: +FERR325T20 PO; +IBUP1TAB7 PO; +NIFE1TAB85 PO; +NIFE30TA8 PO; +PERI PO; -PREN1PAK2 PO; +PREN29TA PO; -PROG100C PO; +TUMS500C CHEW
== END ==
LOC: HPND 07:33
PROVIDERS: ATTEND Obstetrics & Gynecology
DX: O30.043 Twin pregnancy, dichorionic/diamniotic, third trimester (principal); O26.873 Cervical shortening, third trimester
CPT/HCPCS: 76816; 76818; 76820; 76821

== ENCOUNTER 2017-08-17 11:02 | Emergency (ER) | payer OTHER ==
[~2017-08-17 11:02] MED LIST changes: -PREN29TA PO; -TUMS500C CHEW
--- NOTE | 2017-08-17 11:42 | PD ---
HPI Chief Complaint Contractions Date Seen: August 17, 2017 Travel History International Travel<30 Days: No Contact w/Intl Traveler<30Days: No Known Affected Area: No History of Present Illness HPI The patient is a 22-year-old at 32/5 weeks gestation being evaluated due to contractions. The patient was previously admitted here due to having contractions and noted to have a short cervix. Cervical length on 07/21 was 0.9 cm. She was admitted here from 07/29 until 08/03 and was discharged on Procardia XL 30 mg po daily after her contractions resolved. The patient was again seen at [facility] on the morning of 08/11 and was noted to have contractions and sent to OB triage for further evaluation. She was started on a magnesium sulfate drip and monitored in antepartum. She was discharged home on Procardia XL 30 mg po daily after stabilization of her contractions. The patient was again seen at [facility] earlier this morning and again noted to have contractions and sent here for further evaluation. She states her contractions have not become more intense closer together. She denies any leakage or gush of fluid. Endorses positive movements of both twins. She states she has been compliant taking her p.o. Procardia at home as well as being on bedrest. She denies any fevers or chills, dyspnea, urinary complaints. She otherwise denies any specific complaints or concerns. Para: 0 : 1 History Past Medical History Medical History: Denies Significant Hx Obstetric History Obstetric History Past Surgical History Surgical History: No Previous Surgery Family History Family History: Negative Social History Alcohol Use: No Tobacco Use: No Substance Abuse: No Allergies-Medications (Allergen,Severity, Reaction): Coded Allergies: No Known Allergies (Unverified Adverse Reaction, Unknown, 07/29/17) Home Meds Active Scripts Nifedipine ER 24 HR (Procardia XL) 30 Mg Tab, 30 MG PO DAILY, #30 TAB 1 Refill Prov:Kody Wong MD R2 08/17/17 Nifedipine ER 24 HR (Nifedipine ER 24 HR) 30 Mg Tab, 30 MG PO DAILY, #28 TAB Prov:Kody Wong MD R2 08/03/17 Ferrous Sulfate (Ferosul) 325 Mg (65 Mg Iron) Tablet, 325 MG PO BID, #60 TAB Prov:Kody Wong MD R2 08/03/17 Discontinued Reported Medications Calcium Carbonate (Antacid) (Tums) 500 Mg Chew, 500 MG CHEW Y for HEARTBURN, TAB 0 Refills 07/29/17 Discontinued Scripts Vit-Iron Carbonyl ( Plus Iron 29-1 mg) 29 Mg Iron-1 Mg Tab, 1 TAB PO DAILY, #30 TAB Prov:Kody Wong MD R2 08/03/17 Review of Systems Except as stated in HPI: all other systems reviewed are Neg Physical Exam Narrative GENERAL: Well-nourished, well-developed patient. SKIN: Warm and dry. HEAD: Normocephalic and atraumatic. EYES: No scleral icterus. No injection or drainage. ENT: No nasal drainage noted. Mucous membranes pink. Airway patent. NECK: Supple, trachea midline. No JVD. CARDIOVASCULAR: Regular rate and rhythm without murmurs, gallops, or rubs. RESPIRATORY: Breath sounds equal bilaterally. No accessory muscle use. ABDOMEN/GI: Abdomen soft, non-tender, bowel sounds present, no rebound, no guarding Gravid to 33 weeks size GENITOURINARY (performed by Dr. Appiah with female limousine rental clerk present in room): External Genitalia: intact and normal in appearance Cervix: anterior Dilatation: 4cm Effacement: 80% Station: -1 Presentation: [-] Membranes: [-] Uterine Contractions: Irregular FHT's Twin A: Category: I Baseline: 140s Reactive: +accels Variability: moderate Decels: none noted FHT's twin B: Category: I Baseline: 140s Reactive: +accels Variability: moderate Decels: none noted EXTREMITIES: No cyanosis or edema. BACK: Nontender without obvious deformity. No CVA tenderness. NEUROLOGICAL: Awake and alert. Motor and sensory grossly within normal limits. Normal speech. Data Data Vital Signs Reviewed: Yes [facility] Medical Record Reviewed: Yes Plan 22 year old at 32/5 weeks gestation being evaluated due to contractions. 1. Di/di twin gestation - Cervix 4/80/-1, anterior - Category I tracings - Irregular contractions on tocometer - BPP for both twins are 10/10 this morning - Rescue dose of betamethasone given during her last hospital stay in antepartum first dose given 08/11, 2nd dose given 08/12 after 24 hours - The patient refused an intravenous line as plan was for IVF hydration and tocolysis. Patient stated she needed to be sent home from the ED - Patient was instructed to continue her at home Procardia XL 30 mg po daily as well as bedrest at home and patient stated she would be compliant with her Procardia as well as bedrest at home - Discussed with patient signs and symptoms that would warrant a return visit for reevaluation - Patient will continue twice weekly testing with MFM at [facility] sdw Dr. Appiah Diagnosis Diagnosis: Primary Impression: 32 weeks gestation of Disposition: 01 DISCHARGE HOME Condition: Stable Scripts Nifedipine ER 24 HR (Procardia XL) 30 Mg Tab 30 MG PO DAILY, #30 TAB 1 Refill Prov: Kody Wong MD R2 08/17/17 Kody Wong MD R2 August 17, 2017 11:42
[2017-08-17] MEDS ORDERED: NIFE1TAB85 PO (11:49)
== END 2017-08-17 12:37 | disposition home or self-care (01) ==
LOC: HOBED 11:02
DX: O47.03 False labor before 37 completed weeks of gestation, third trimester (principal); O30.043 Twin pregnancy, dichorionic/diamniotic, third trimester; Z3A.32 32 weeks gestation of pregnancy
CPT/HCPCS: 59025

== ENCOUNTER 2017-08-27 11:05 | Inpatient (IN) | payer OTHER ==
[~2017-08-27 11:05] MED LIST changes: +NIFE1TAB85 PO
--- NOTE | 2017-08-27 11:46 | PD ---
HPI Chief Complaint intense contractions Date Seen: Aug 27, 2017 Time Seen: 11:38 (Aubrey Mckeon MD, R1) Travel History International Travel<30 Days: No Contact w/Intl Traveler<30Days: No (Aubrey Mckeon MD, R1) History of Present Illness HPI 22 yo F at 34 wks gestation presenting to OB triage due to complains of intense contractions that began this morning. Patient with di/di twin gestation. No change in course since she was seen in [facility] OB u/s today. At her OB doctor's office she found to be 5cm dilated with bloody show and advised to come to OB triage. Endorses movement. No lost of fluid. Of note: had been complicated by persistent contractions. She is s/p mag sulfate, steroids x2 and had previously been discharged with Procardia QD. Pt reports she has been compliant with procardia medication. Weeks Gestation: 34 Para: 0 : 1 (Aubrey Mckeon MD, R1) History Past Medical History Medical History: Denies Significant Hx (Aubrey Mckeon MD, R1) Obstetric History Obstetric History (Aubrey Mckeon MD, R1) Past Surgical History Surgical History: No Previous Surgery (Aubrey Mckeon MD, R1) Family History Family History: Negative (Aubrey Mckeon MD, R1) Social History Alcohol Use: No Tobacco Use: No Substance Abuse: No (Aubrey Mckeon MD, R1) Allergies-Medications (Allergen,Severity, Reaction): Coded Allergies: No Known Allergies (Unverified Adverse Reaction, Unknown, 07/29/17) Home Meds Active Scripts Nifedipine ER 24 HR (Procardia XL) 30 Mg Tab, 30 MG PO DAILY, #30 TAB 1 Refill Prov:Kody Wong MD R2 08/17/17 Nifedipine ER 24 HR (Nifedipine ER 24 HR) 30 Mg Tab, 30 MG PO DAILY, #28 TAB Prov:Kody Wong MD R2 08/03/17 Ferrous Sulfate (Ferosul) 325 Mg (65 Mg Iron) Tablet, 325 MG PO BID, #60 TAB Prov:Kody Wong MD R2 08/03/17 Review of Systems Except as stated in HPI: all other systems reviewed are Neg (per HPI) (Aubrey Mckeon MD, R1) Physical Exam Narrative GENERAL: Well-nourished, well-developed patient. SKIN: Warm and dry. HEAD: Normocephalic and atraumatic. EYES: No scleral icterus. No injection or drainage. ENT: No nasal drainage noted. Mucous membranes pink. Airway patent. NECK: Supple, trachea midline. No JVD. CARDIOVASCULAR: Regular rate and rhythm without murmurs, gallops, or rubs. RESPIRATORY: Breath sounds equal bilaterally. No accessory muscle use. ABDOMEN/GI: Abdomen soft, non-tender, bowel sounds present, no rebound, no guarding Gravid to 34 weeks size GENITOURINARY: External Genitalia: intact and normal in appearance Dilatation: 4 Effacement: 100 Membranes: intact Uterine Contractions:every 2-3mins FHT's: Twin A Category: 1 Baseline: 130 Reactive: yes Variability: moderate Decels: none Twin B Category: 1 Baseline: 140 Reactive: yes Variability: moderate Decels: none EXTREMITIES: No cyanosis or edema. BACK: Nontender without obvious deformity. No CVA tenderness. NEUROLOGICAL: Awake and alert. Motor and sensory grossly within normal limits. Five out of 5 muscle strength in all muscle groups. Normal speech. (Aubrey Mckeon MD, R1) Data Data Vital Signs Reviewed: Yes (Aubrey Mckeon MD, R1) [facility] Medical Record Reviewed: Yes Plan 22 yo F at 34 wks gestation presenting to OB triage due to complains of intense contractions that began this morning. IUP at 34 wks gestation with di/di twin -encourage oral hydration -f/u UA -cervical chk: -category 1, NST reassuring -normal Ob us today -repeat cervical check dilation change of appx 5cm - patient will be admitted to L&D for monitoring SWD Dr. Laguerre (Aubrey Mckeon MD, R1) Attending Attestation Patient seen and evaluated with resident under direct supervision, agree with assessment and plan. (Jese Cohen MD) Aubrey Mckeon MD, R1 Aug 27, 2017 11:46 Jese Cohen MD Aug 27, 2017 14:25
[2017-08-27] MEDS ORDERED: ACETAMINOPHEN 325 MG TAB PO PRN ×2 (13:15→23:45)
[2017-08-27] MEDS ORDERED: ONDANSETRON ODT 4 MG TAB PO PRN ×2 (13:15→23:45)
[2017-08-27] MEDS ORDERED: DOCUSATE SODIUM 100 MG CAP PO PRN (13:15)
[2017-08-27] MEDS ORDERED: SODIUM CHLORIDE 0.9% FLUSH 10 ML FLUSH IV FLUSH PRN ×2 (13:15→23:45)
--- NOTE | 2017-08-27 13:45 | HHI.HP ---
History & Physical H&P HPI Chief Complaint intense contractions Date Seen: Aug 27, 2017 Time Seen: 11:38 Travel History International Travel<30 Days: No Contact w/Intl Traveler<30Days: No History of Present Illness HPI 22 yo F at 34 wks gestation presenting to OB triage due to complains of intense contractions that began this morning. Patient with di/di twin gestation. No change in course since she was seen in [facility] u/s today. At her OB doctor's office she found to be 5cm dilated with bloody show and advised to come to OB triage. Endorses movement. No lost of fluid. Of note: had been complicated by persistent contractions. She is s/p mag sulfate, steroids x2 and had previously been discharged with Procardia QD. Pt reports she has been compliant with procardia medication. Weeks Gestation: 34 Para: 0 : 1 History (Limited) History Past Medical History Medical History: Denies Significant Hx Obstetric History Obstetric History Past Surgical History Surgical History: No Previous Surgery Family History Family History: Negative Social History Alcohol Use: No Tobacco Use: No Substance Abuse: No Allergies-Medications Allergies-Medications (Allergen,Severity, Reaction): Coded Allergies: No Known Allergies (Unverified Adverse Reaction, Unknown, 07/29/17) Home Meds Active Scripts Nifedipine ER 24 HR (Procardia XL) 30 Mg Tab, 30 MG PO DAILY, #30 TAB 1 Refill Prov:Kody Wong MD R2 08/17/17 Nifedipine ER 24 HR (Nifedipine ER 24 HR) 30 Mg Tab, 30 MG PO DAILY, #28 TAB Prov:Kody Wong MD R2 08/03/17 Ferrous Sulfate (Ferosul) 325 Mg (65 Mg Iron) Tablet, 325 MG PO BID, #60 TAB Prov:Kody Wong MD R2 08/03/17 ROS Review of Systems Except as stated in HPI: all other systems reviewed are Neg (per HPI) Physical Exam Physical Exam Narrative GENERAL: Well-nourished, well-developed patient. SKIN: Warm and dry. HEAD: Normocephalic and atraumatic. EYES: No scleral icterus. No injection or drainage. ENT: No nasal drainage noted. Mucous membranes pink. Airway patent. NECK: Supple, trachea midline. No JVD. CARDIOVASCULAR: Regular rate and rhythm without murmurs, gallops, or rubs. RESPIRATORY: Breath sounds equal bilaterally. No accessory muscle use. ABDOMEN/GI: Abdomen soft, non-tender, bowel sounds present, no rebound, no guarding Gravid to 34 weeks size GENITOURINARY: External Genitalia: intact and normal in appearance Dilatation: 4 Effacement: 100 Membranes: intact Uterine Contractions:every 2-3mins FHT's: Twin A Category: 1 Baseline: 130 Reactive: yes Variability: moderate Decels: none Twin B Category: 1 Baseline: 140 Reactive: yes Variability: moderate Decels: none EXTREMITIES: No cyanosis or edema. BACK: Nontender without obvious deformity. No CVA tenderness. NEUROLOGICAL: Awake and alert. Motor and sensory grossly within normal limits. Five out of 5 muscle strength in all muscle groups. Normal speech. Data Data Data Vital Signs Reviewed: Yes MDM MDM Medical Record Reviewed: Yes Plan 22 yo F at 34 wks gestation presenting to OB triage due to complains of intense contractions that began this morning. IUP at 34 wks gestation with di/di twin -encourage oral hydration -cervical chk: -category 1, NST reassuring -normal Ob us today -repeat cervical check: dilation change from 4cm to appx 5cm -patient will be admitted to L&D for monitoring -will order rapid GBS pcr cx -UA negative SWD Dr. Laguerre (Aubrey Mckeon MD, R1) H&P Patient seen and evaluated with resident under direct supervision, agree with assessment and plan. (Jese Cohen MD) Aubrey Mckeon MD, R1 Aug 27, 2017 13:44 Jese Cohen MD Aug 27, 2017 14:26
[2017-08-27] MEDS: LACTATED RINGER'S 1000 ML INJ 1,000 ML IV SCH ×2 (14:05→16:47)
[2017-08-27 14:30] LABS: AUTOMATED NEUTROPHIL # 5.8 TH/MM3 (1.8-7.7); BASOPHIL % 0.4 % (0.0-2.0); EOSINOPHIL # 0.1 TH/MM3 (0-0.4); HEMATOCRIT 32.2 % (35.0-46.0); HEMOGLOBIN 10.6 GM/DL (11.6-15.3); LYMPH % 17.2 % (9.0-44.0); LYMPHOCYTE # 1.4 TH/MM3 (1.0-4.8); MEAN CELL VOLUME 83.1 FL (80.0-100.0); MEAN CORPUSCULAR HEMOGLOBIN 27.4 PG (27.0-34.0); MEAN PLATELET VOLUME 10.6 FL (7.0-11.0); MONO % 12.2 % (0.0-8.0); NEUT % 69.2 % (16.0-70.0); PLATELET COUNT 195 TH/MM3 (150-450); RED BLOOD COUNT 3.88 MIL/MM3 (4.00-5.30); RED CELL DISTRIBUTION WIDTH 14.9 % (11.6-17.2); WHITE BLOOD COUNT 8.3 TH/MM3 (4.0-11.0)
[2017-08-27] MEDS ORDERED: DIPHTH/TETANUS/ACEL PERTUSSIS (BOOSTER) 0.5 ML VIAL/PFS IM ONE (16:00)
[2017-08-27] MEDS ORDERED: MEASLES, MUMPS, RUBELLA VACCINE 0.5 ML VIAL SQ ONE (16:00)
[2017-08-27] MEDS ORDERED: LACTATED RINGER'S 1000 ML INJ 1,000 ML IV SCH (16:29)
[2017-08-27] MEDS ORDERED: LACTATED RINGER'S 1000 ML INJ 1,000 ML IV PRN (16:29)
[2017-08-27] MEDS ORDERED: MINERAL OIL 10 ML VIAL TOPICAL PRN (16:30)
[2017-08-27] MEDS ORDERED: LIDOCAINE HCL 1% 50 ML VIAL I-DERMAL PRN (16:30)
[2017-08-27] MEDS ORDERED: LIDOCAINE HCL 1% 50 ML VIAL INFIL PRN (16:30)
[2017-08-27] MEDS ORDERED: SODIUM CHLORID 0.9% 500 ML INJ 500 ML IV PRN (16:30)
[2017-08-27] MEDS ORDERED: OXYTOCIN 30 UNITS-500ML PREMIX 500 ML IV ONE (16:30)
[2017-08-27] MEDS ORDERED: CITRIC ACID-SODIUM CITRATE LIQ 30 ML UDC PO SCH (16:30)
[2017-08-27] MEDS ORDERED: fentaNYL 2MCG-BUPIV 0.125% INJ 150 ML EPIDURAL ONE (16:40)
[2017-08-27] MEDS ORDERED: SODIUM CHLOR 0.9% 1000 ML INJ 1,000 ML IV PRN (16:49)
[2017-08-27] MEDS ORDERED: ePHEDrine/NS 25 MG/5 ML SYRINGE ONE (17:08)
[2017-08-27] MEDS ORDERED: LIDOCAINE 1.5%/EPINEPHrine 1:200,000 PF 5 ML AMP ONE ×2 (17:30→17:35)
[2017-08-27] MEDS ORDERED: fentaNYL 2MCG-BUPIV 0.125% 150 ML EPIDURAL PRN (18:45)
[2017-08-27] MEDS ORDERED: ePHEDrine/NS 25 MG/5 ML SYRINGE IV PUSH PRN (18:45)
[2017-08-27] MEDS ORDERED: DO NOT ADMINISTER ANTICOAGULANTS PRN (18:45)
[2017-08-27] MEDS ORDERED: NO SYSTEM NARCOTICS PRN (18:45)
[2017-08-27] MEDS ORDERED: SODIUM CHLORIDE 0.9% FLUSH 10 ML FLUSH IV FLUSH SCH (21:00)
--- NOTE | 2017-08-27 21:00 | PD.LABORPN ---
Subjective Subjective The patient is comfortable with epidural analgesia. Objective Objective Pelvic Exam: Cervix: [-] Dilatation: [7-] Effacement: [100-] Station: [--2] Presentation: [Vertex-] Membranes: [Artificially ruptured] Uterine Contractions: [-Every 3-7] FHT's: Category: [1x2-] Baseline: [-] Reactive: [-] Variability: [-] Decels: [-] Weeks Gestation: 34 Gest Age Assessed Date: Aug 27, 2017 Gest Age Assessed Time: 20:58 Pt started active labor?: Yes Active labor start date: Aug 27, 2017 Active labor start time: 13:00 Medical induction of labor?: No Artificial rupture of membrane: Yes Artificial ROM date: Aug 27, 2017 Artifical ROM time: 20:36 Assessment/Plan Assessment and Plan Assessment: 34 week twins in active labor, GBS negative Plan: Anticipate vaginal delivery Jese Cohen MD Aug 27, 2017 21:00
[2017-08-27] MEDS ORDERED: OXYTOCIN 30 UNITS-500ML PREMIX 500 ML IV PRN (21:15)
[2017-08-27] MEDS ORDERED: BUPIVACAINE HCL PF 0.25% 10 ML VIAL ONE (22:58)
[2017-08-27] MEDS ORDERED: ALUMINUM/MAGNESIUM/SIMETH 30 ML CUP PO PRN (23:45)
[2017-08-27] MEDS ORDERED: OXYTOCIN 30 UNITS-500ML PREMIX 500 ML IV SCH (23:45)
[2017-08-27] MEDS ORDERED: DOCUSATE SODIUM 50 MG/SENNA 8.6 MG TAB PO PRN (23:45)
[2017-08-27] MEDS ORDERED: BENZOCAINE 20% TOPICAL SPRAY 60 ML CAN TOPICAL PRN (23:45)
[2017-08-27] MEDS ORDERED: ZOLPIDEM TARTRATE 5 MG TAB PO PRN (23:45)
[2017-08-27] MEDS ORDERED: WITCH HAZEL 50%/GLYCERIN 12.5% 40 PAD JAR TOPICAL PRN (23:45)
--- NOTE | 2017-08-27 23:52 | PD.OB.DELI ---
Weeks gestation: 34 Gest age assessed date: Aug 27, 2017 Gest age assessed time: 20:58 Pt started active labor?: Yes Active labor start date: Aug 27, 2017 Active labor start time: 13:00 Medical induction of labor?: No Artificial rupture of membrane: Yes Artificial ROM date: Aug 27, 2017 Artifical ROM time: 20:36 Anesthesia: Epidural Episiotomy: None Vaginal Delivery: Normal (twin a), Vacuum (twin B) Presentation: Occiput anterior (A&B) Nuchal Cord: None Delayed cord clamping (45 sec): Yes (A&B) : Male (A&B) Delivery date: Aug 27, 2017 Delivery time: 23:11 Placenta: Spontaneous delivery, Intact Laceration: Vaginal laceration, 1 deg Repair: Vicryl running Estimated blood loss: 300 Additional Information The patient achieved complete cervical dilation she was taken to the operative suite and under double set up pushed effectively to deliver twin A over an intact perineum. There was no delay for the shoulders which were delivered by maternal effort. The was passed to the maternal abdomen were delayed cord clamping was accomplished. Cord blood sample was obtained. The cord of twin A was marked with a single cord clamp. Abdominal ultrasound was then performed and demonstrated twin B descending in a vertex presentation. Amniotomy was performed with clear fluid noted. The vertex descended under maternal effort and at +2 station a Kiwi vacuum was applied to the flex point and vacuum-assisted delivery of twin B was accomplished. The shoulders were delivered by maternal effort. The remainder the followed easily and the baby was passed to the maternal abdomen were delayed cord clamping was accomplished. The placenta delivered spontaneously. It was grossly normal and apparently intact. It was sent for pathologic evaluation. Due to some initial suppression of the infant a request for a cord blood gas from twin B was made. However the placenta had artery been delivered. This cord blood sample was drawn from the cord after the placenta was delivered and therefore I do not expect this to be accurate. Hemostasis was excellent with IV Pitocin solution and massage. A small first-degree vaginal laceration at 6:00 was repaired with 3-0 Vicryl. Jese Cohen MD Aug 27, 2017 23:52
[2017-08-28 02:14] VITALS: BP 140/81; PULSE 79; RESP 18; TEMP 98.5
--- NOTE | 2017-08-28 07:43 | HHI.OB ---
Subjective Post Day: 1 Remarks Patient seen and examined this morning. AFVSS overnight. day #1. Patient states her pain has been well controlled thus far, stated about a 5/10 this morning. Decreased lochia. Denies dysuria. No breast tenderness. She states that she has been able to tolerate drinking apple juice without nausea or vomiting. Ambulating well. Denies fevers or chills, calf pain, shortness of breath, or cough. She otherwise has no other complaints or concerns this morning. (Kody Wong MD R2) Remarks Patient seen and evaluated with resident under direct supervision, agree with assessment and plan. (Jese Cohen MD) Objective Vitals/I&O Vital Signs Date Time Temp Pulse Resp B/P (MAP) Pulse Ox O2 Delivery O2 Flow Rate FiO2 08/28/17 02:14 98.5 79 18 140/81 (100) Objective Remarks GENERAL: Well-nourished, well-developed patient. CARDIOVASCULAR: Regular rate and rhythm without murmurs, gallops, or rubs. RESPIRATORY: Breath sounds equal bilaterally. No accessory muscle use. ABDOMEN/GI: Abdomen soft, non-tender. Fundus: Firm, non-tender at umbilicus. GENITOURINARY: Light to moderate bleeding. EXTREMITIES: No cyanosis or edema, non-tender, without signs of DVT. Medications and IVs Current Medications Medications (Trade) Dose Ordered Sig/Lashanda Route Start Time Stop Time Status Last Admin (NS Flush) 2 ml BID IV FLUSH 08/28/17 09:00 (NS Flush) 2 ml UNSCH PRN IV FLUSH 08/27/17 23:45 (Tylenol) 650 mg Q4H PRN PO 08/27/17 23:45 (Motrin) 800 mg Q8H PRN PO 08/27/17 23:45 (Americaine 20% Top Spr) 1 spray Q4H PRN TOPICAL 08/27/17 23:45 08/28/17 03:05 (Tucks Pads) 1 applic QID PRN TOPICAL 08/27/17 23:45 08/28/17 03:05 (Elo-Colace) 2 tab Q12H PRN PO 08/27/17 23:45 (Ambien) 5 mg HS PRN PO 08/27/17 23:45 (Mag-Al Plus Susp Liq) 15 ml Q8H PRN PO 08/27/17 23:45 (Zofran Odt) 4 mg Q6H PRN PO 08/27/17 23:45 (Kody Wong MD R2) Assessment/Plan Problem List: (1) care following vaginal delivery ICD Codes: Z39.2 - Encounter for routine follow-up Assessment and Plan 22 year old PPD#1 delivered twins. 1. Care - AFVSS - Encouraged OOB, as tolerated - Motrin or Percocet prn pain - Advised pelvic rest x 6 weeks - Contraception: Discussed with patient this morning, patient is not desiring any form of contraception. - Will f/u with OB provider in 6 weeks [facility] OB hospitalist (Kody Wong MD R2) Kody Wong MD R2 Aug 28, 2017 07:43 Jese Cohen MD Aug 29, 2017 16:39
[2017-08-28] MEDS ORDERED: MULTIVIT/MIN/PREN/FOL AC/IRON PRENATAL TAB PO SCH (09:00)
[2017-08-28] MEDS ORDERED: SODIUM CHLORIDE 0.9% FLUSH 10 ML FLUSH IV FLUSH SCH (09:00)
[2017-08-28] MEDS: IBUPROFEN 800 MG TAB PO PRN ×2 (10:21→20:20)
[2017-08-29 08:00] VITALS: BP 113/73; PULSE 66; RESP 20; TEMP 98.1; O2SAT 99
[2017-08-29] MEDS ORDERED: IBUP1TAB7 PO (10:21)
[2017-08-29] MEDS ORDERED: PERI PO (10:21)
--- NOTE | 2017-08-29 10:21 | HHI.OB ---
Subjective Post Day: 2 Remarks day #2. AFVSS overnight. Pain well-controlled. Decreased lochia. Denies dysuria. No breast tenderness. She is feeding the baby via breast. Appetite good. No nausea or vomiting. Endorses flatus. Positive bowel movement. Ambulating well. Denies calf pain, shortness of breath, or cough. Otherwise, she is doing well this morning and has no other complaints. Objective Vitals/I&O Vital Signs Date Time Temp Pulse Resp B/P (MAP) Pulse Ox O2 Delivery O2 Flow Rate FiO2 08/29/17 08:00 98.1 66 20 113/73 (86) 99 Objective Remarks GENERAL: Well-nourished, well-developed patient. CARDIOVASCULAR: Regular rate and rhythm without murmurs, gallops, or rubs. RESPIRATORY: Breath sounds equal bilaterally. No accessory muscle use. ABDOMEN/GI: Abdomen soft, non-tender. Fundus: Firm, non-tender at umbilicus. GENITOURINARY: Light to moderate bleeding. EXTREMITIES: No cyanosis or edema, non-tender, without signs of DVT. Medications and IVs Current Medications Medications (Trade) Dose Ordered Sig/Lashanda Route Start Time Stop Time Status Last Admin (NS Flush) 2 ml BID IV FLUSH 08/28/17 09:00 (NS Flush) 2 ml UNSCH PRN IV FLUSH 08/27/17 23:45 (Tylenol) 650 mg Q4H PRN PO 08/27/17 23:45 (Motrin) 800 mg Q8H PRN PO 08/27/17 23:45 08/28/17 20:20 (Americaine 20% Top Spr) 1 spray Q4H PRN TOPICAL 08/27/17 23:45 08/28/17 03:05 (Tucks Pads) 1 applic QID PRN TOPICAL 08/27/17 23:45 08/28/17 03:05 (Elo-Colace) 2 tab Q12H PRN PO 08/27/17 23:45 (Ambien) 5 mg HS PRN PO 08/27/17 23:45 (Mag-Al Plus Susp Liq) 15 ml Q8H PRN PO 08/27/17 23:45 (Zofran Odt) 4 mg Q6H PRN PO 08/27/17 23:45 Assessment/Plan Problem List: (1) care following vaginal delivery ICD Codes: Z39.2 - Encounter for routine follow-up Assessment and Plan 22 year old PPD#2delivered twins. 1. Care - AFVSS - Encouraged OOB, as tolerated - Motrin or Percocet prn pain - Advised pelvic rest x 6 weeks - Contraception: Discussed with patient this morning, patient is not desiring any form of contraception. - Will f/u with OB provider in 6 weeks [facility] OB hospitalist Kiran Marsh MD R2 Aug 29, 2017 10:21
--- NOTE | 2017-08-29 10:22 | HHI.DCPOC ---
Discharge Care Plan Diagnosis: (1) care following vaginal delivery Report Symptoms to Your Doctor -Temperature above 100.5 degrees -Redness, of incision or excessive or foul smelling drainage -Unusual pain or calf pain -Increased vaginal bleeding -Painful or difficulty urinating -Feelings of extreme sadness or anxiety after 2 weeks Goals to Promote Your Health * To prevent worsening of your condition and complications * To maintain your health at the optimal level Directions to Meet Your Goals Take your medications as prescribed Follow your dietary instruction Follow activity as directed Ensure plenty of rest for recovery Drink fluids for hydration Keep your appointments as scheduled Take your immunizations and boosters as scheduled If your symptoms worsen call your PCP, if no PCP go to Urgent Care Center or Emergency Room Smoking is Dangerous to Your Health. Avoid second hand smoke Call the 24-hour crisis hotline for domestic abuse at Kiran Marsh MD R2 Aug 29, 2017 10:22
[2017-08-29] MEDS: IBUPROFEN 800 MG TAB PO PRN (11:22)
== END 2017-08-29 13:44 | disposition home or self-care (01) | DRG 775 ==
LOC: HOBED 11:05 → UNDOADMIN 13:16 → H2EA 13:16 → H1EA 08-28 01:58
PROVIDERS: ADMIT Obstetrics & Gynecology; ATTEND Obstetrics & Gynecology
PROC: 10D07Z6 Extraction of Products of Conception, Vacuum, Via Natural or Artificial Opening (ICD-10-PCS; principal; 2017-08-27)
PROC: 0HQ9XZZ Repair Perineum Skin, External Approach (ICD-10-PCS; 2017-08-27)
PROC: 3E0S3BZ Introduction of Anesthetic Agent into Epidural Space, Percutaneous Approach (ICD-10-PCS; 2017-08-27)
DX: O60.14X0 Preterm labor third trimester with preterm delivery third trimester, not applicable or unspecified (principal); O30.043 Twin pregnancy, dichorionic/diamniotic, third trimester; O70.0 First degree perineal laceration during delivery; Z3A.34 34 weeks gestation of pregnancy; Z37.2 Twins, both liveborn
CPT/HCPCS: 76815; 82805; 85025; 87081; 87150; J2590; J7120